=== PATIENT | female | born 1980 | race Two or more races ===

== ENCOUNTER 2021-06-08 16:57 | Inpatient (IN) | payer SELFPAY ==
[~2021-06-08] VITALS: Ht 160 cm; Wt 79.3 kg
[2021-06-08] MEDS ORDERED: IV NORMAL SALINE 1000ML BAG 1,000 ML IV ONE ×2 (18:15→18:30)
[2021-06-08] MEDS ORDERED: KETOROLAC 30 MG/ML VIAL. IVP ONE (18:15)
[2021-06-08 18:30] LABS: BASO % 1 % (0-3); EOS % 0 % (0-3); HEMATOCRIT 44.2 % (36.0-47.0); HEMOGLOBIN 14.9 g/dL (12.0-15.5); LYMPH % 11 % (24-48); MEAN CORPUSCULAR HEMOGLOBIN 29 pg (25-35); MEAN CORPUSCULAR HGB CONC 34 g/dL (31-37); MEAN CORPUSCULAR VOLUME 87 fL (79-100); MONO # 0.8 x10^3/uL (0.0-1.1); MONO % 8 % (0-9); NEUT # 7.8 x10^3/uL (1.8-7.7); NEUT % 80 % (31-73); PLATELET COUNT 338 x10^3/uL (140-400); RED BLOOD COUNT 5.06 x10^6/uL (3.50-5.40); WHITE BLOOD COUNT 9.7 x10^3/uL (4.0-11.0)
[2021-06-08] MEDS ORDERED: ONDANSETRON PF 4 MG/2 ML VIAL. IVP ONE (18:30)
[2021-06-08] MEDS ORDERED: ACETAMINOPHEN 325 MG TABLET. PO ONE (18:30)
[2021-06-08 18:57] LABS: ALBUMIN 2.6 g/dL (3.4-5.0); ALBUMIN/GLOBULIN RATIO 0.4 (1.0-1.7); CALCIUM 9.1 mg/dL (8.5-10.1); GFR 60.8; TOTAL BILIRUBIN 0.9 mg/dL (0.2-1.0); TOTAL PROTEIN 8.5 g/dL (6.4-8.2)
[2021-06-08 19:07] LABS: INFLUENZA A PATIENT NEGATIVE (NEGATIVE); INFLUENZA B PATIENT NEGATIVE (NEGATIVE)
--- NOTE | 2021-06-08 19:12 | EKG ---
[facility] [address] [place] [address] Test Date: 2021-06-08 Test Time: 17:59:50 Pat Name: TAE ANGEL Department: Room: Gender: F [employer] Supervisor: : 1980 Requested By: STAR TRIPP Order Number: [id number] Reading MD: Cholo Martino MD Measurements Intervals [place] Rate: 134 P: 91 ND: 126 QRS: -10 QRSD: 82 T: 43 QT: 290 QTc: 439 Interpretive Statements SINUS TACHYCARDIA NON-SPECIFIC ST/T CHANGES Electronically Signed On 06-15-2021 11:54:04 SURGEON/PRESIDENT by Cholo Martino MD
--- NOTE | 2021-06-08 19:30 | RAD ---
XR CHEST 1V Clinical Indication: Reason: Shortness of breath Comparison: None. Findings: The cardiomediastinal silhouette is normal. There are moderate bilateral patchy airspace opacities. T here is no pneumothorax. No pleural effusion is appreciated. No acute bone abnormality. IMPRESSION: Moderate bilateral patchy airspace opacities suggest pneumonia including atypical/viral pneumonia. Electronically signed by: Josemanuel Zelaya MD (06/08/2021 7:28 PM) [facility]
[2021-06-08] MEDS ORDERED: POTASSIUM CHLORIDE 10MEQ 100 ML IV PRN ×3 (19:45)
[2021-06-08] MEDS ORDERED: ACETAMINOPHEN 325 MG TABLET. PO PRN (20:15)
[2021-06-08] MEDS ORDERED: MORPHINE SULFATE 2 MG/ML INJ. IVP PRN (20:15)
[2021-06-08] MEDS ORDERED: ONDANSETRON PF 4 MG/2 ML VIAL. IVP PRN (20:15)
[2021-06-08] MEDS ORDERED: cefTRIAXone IV Push 1 GM VIAL. IVP ONE (20:30)
[2021-06-08] MEDS ORDERED: DEXAMETHASONE SOD PHOS 20 MG/5 ML VIAL. IV ONE (20:30)
[2021-06-08] MEDS ORDERED: AZITHRMYCN 500MG IVPB FOR OMNI 250 ML IV ONE (20:30)
[2021-06-08 20:40] LABS: BILIRUBIN,URINE SMALL (NEG); CLARITY,URINE CLEAR; COLOR,URINE YELLOW; NITRITE,URINE NEGATIVE (NEG); PH,URINE 6.5 (<5.0-8.0); PROTEIN,URINE 100 mg/dL (NEG-TRACE)
[2021-06-08 20:45] LABS: RBC,URINE TNTC /HPF (0-2)
--- NOTE | 2021-06-08 20:45 | PHYS DOC ---
Past Medical History Past Surgical History: No Surgical History (STAR TRIPP APRN) Smoking Status: Never Smoker Alcohol Use: None (STAR TRIPP APRN) General Adult EDM: Chief Complaint: SHORTNESS OF BREATH HPI: HPI: Patient is a 41-year-old female presents to the emergency department complaining of shortness of breath since this past . Patient denies chest pains, has not taken her temperature however does state she felt feverish with chills, denies chest pains, denies chest congestion, denies abdominal pains, states she does feel nauseated at times, denies nasal congestion, does complain of bilateral ear pain with throat discomfort. Reports body aches, denies receiving the COVID-19 virus vaccination series nor the flu vaccination this year. Patient states she is normally healthy and does not take prescription medications at home, does not have a primary care provider. Reports her last menstrual cycle 2 weeks ago with normal duration of flow. Patient denies urinary pressure, burning with urination, does report she is going to the bathroom more frequently and is drinking more water as she seems more thirsty lately. Patient denies other physical complaints or physical concerns. (STAR TRIPP APRN) Review of Systems: Review of Systems: 14 body systems of review of systems have been reviewed. See HPI for pertinent positives and negative responses, otherwise all other systems are negative, nonpertinent or noncontributory. Constitutional: Negative except as outlined in HPI above. Skin: Negative except as outlined in HPI above. Eyes: Negative except as outlined in HPI above. HENT: Negative except as outlined in HPI above. Respiratory: Negative except as outlined in HPI above. Cardiovascular: Negative except as outlined in HPI above. GI: Negative except as outlined in HPI above. : Negative except as outlined in HPI above. Musculoskeletal: Negative except as outlined in HPI above. Integument: Negative except as outlined in HPI above. Neurologic: Negative except as outlined in HPI above. Endocrine: Negative except as outlined in HPI above. Lymphatic: Negative except as outlined in HPI above. Psychiatric: Negative except as outlined in HPI above. (STAR TRIPP APRN) Heart Score: C/O Chest Pain: No Risk Factors: Risk Factors: DM, Current or recent (<one month) smoker, HTN, HLP, family history of CAD, obesity. Risk Scores: Score 0 - 3: 2.5% MACE over next 6 weeks - Discharge Home Score 4 - 6: 20.3% MACE over next 6 weeks - Admit for Clinical Observation Score 7 - 10: 72.7% MACE over next 6 weeks - Early Invasive Strategies (STAR TRIPP APRN) Current Medications: Current Medications Medications (Trade) Dose Ordered Sig/Andres Start Time Stop Time Status Last Admin Dose Admin Acetaminophen (Tylenol) 650 mg PRN Q4HRS PRN 06/08/21 20:15 06/09/21 20:14 UNV Azithromycin 250 ml @ 250 mls/hr 1X ONCE 06/08/21 20:30 06/08/21 21:29 Ceftriaxone Sodium (Rocephin) 1 gm 1X ONCE 06/08/21 20:30 06/08/21 20:31 Dexamethasone Sodium Phosphate (Decadron) 10 mg 1X ONCE 06/08/21 20:30 06/08/21 20:31 Insulin Human Regular 100 unit/ Sodium Chloride 101 ml @ 0 mls/hr CONT PRN PRN 06/08/21 19:45 Ketorolac Tromethamine (Toradol 30mg Vial) 30 mg 1X ONCE 06/08/21 18:15 06/08/21 18:23 DC 06/08/21 18:26 30 MG Morphine Sulfate (Morphine Sulfate) 2 mg PRN Q2HR PRN 06/08/21 20:15 06/09/21 20:14 UNV Ondansetron HCl (Zofran) 4 mg PRN Q8HRS PRN 06/08/21 20:15 06/09/21 20:14 UNV Potassium Chloride/Water 100 ml @ 100 mls/hr PRN Q1HR PRN 06/08/21 19:45 Sodium Chloride 1,000 ml @ 1,000 mls/hr 1X ONCE 06/08/21 18:30 06/08/21 19:29 DC 06/08/21 18:18 1,000 MLS/HR (STAR TRIPP APRN) Allergies: Allergies: Allergies Coded Allergies Type Severity Reaction Last Updated Verified No Known Drug Allergies 06/08/21 No (STAR TRIPP APRN) Physical Exam: PE: Constitutional: Well developed, well nourished, no acute distress, is not toxic in appearance, is hypoxic during triage vitals, placed on 2 L per nasal cannula O2. HENT: Normocephalic, atraumatic. Oropharynx dry, tongue is dry, mild erythema of the oropharynx, no uvular edema or deviation, no laryngeal edema appreciated, patient speaking in normal voice tones. Bilateral TMs intact and within normal limits for bilateral nasal turbinates dry, no drainage appreciated. No lymphadenopathy of the head or neck appreciated. Eyes: Conjunctiva not erythematous, dry bilaterally, no discharge. PERRLA Neck: Normal range of motion, no stridor. No nuchal rigidity, no meningismus signs. Cardiovascular: No cyanosis appreciated, distal cap refill less than 2 seconds. Heart rate tachycardic. Lungs & Thorax: Patient is in no respiratory distress, no audible adventitious lung sounds appreciated. Lung sounds clear to auscultate all lung fernandez, patient tachypneic and breathing. Abdomen: Nontender, no abnormalities noted. Skin: Warm, dry, no erythema, no rash. Back: No tenderness, no deformities. Extremities: No tenderness, no cyanosis, no clubbing, ROM intact, no edema. Neurologic: Alert and oriented X 3, normal motor function, normal sensory function, no focal deficits noted. Psychologic: Affect normal, judgement normal, mood normal. (STAR TRIPP APRN) Current Patient Data: Labs: Laboratory Tests Test 06/08/21 18:03 White Blood Count 9.7 x10^3/uL (4.0-11.0) Red Blood Count 5.06 x10^6/uL (3.50-5.40) Hemoglobin 14.9 g/dL (12.0-15.5) Hematocrit 44.2 % (36.0-47.0) Mean Corpuscular Volume 87 fL (79-100) Mean Corpuscular Hemoglobin 29 pg (25-35) Mean Corpuscular Hemoglobin Concent 34 g/dL (31-37) Red Cell Distribution Width 15.0 % (11.5-14.5) H Platelet Count 338 x10^3/uL (140-400) Neutrophils (%) (Auto) 80 % (31-73) H Lymphocytes (%) (Auto) 11 % (24-48) L Monocytes (%) (Auto) 8 % (0-9) Eosinophils (%) (Auto) 0 % (0-3) Basophils (%) (Auto) 1 % (0-3) Neutrophils # (Auto) 7.8 x10^3/uL (1.8-7.7) H Lymphocytes # (Auto) 1.0 x10^3/uL (1.0-4.8) Monocytes # (Auto) 0.8 x10^3/uL (0.0-1.1) Eosinophils # (Auto) 0.0 x10^3/uL (0.0-0.7) Basophils # (Auto) 0.0 x10^3/uL (0.0-0.2) Sodium Level 131 mmol/L (136-145) L Potassium Level 3.0 mmol/L (3.5-5.1) L Chloride Level 99 mmol/L (98-107) Carbon Dioxide Level 11 mmol/L (21-32) *L Anion Gap 21 (6-14) H Blood Urea Nitrogen 13 mg/dL (7-20) Creatinine 1.0 mg/dL (0.6-1.0) Estimated GFR (Cockcroft-Gault) 60.8 BUN/Creatinine Ratio 13 (6-20) Glucose Level 453 mg/dL (70-99) H Lactic Acid Level 3.0 mmol/L (0.4-2.0) H Calcium Level 9.1 mg/dL (8.5-10.1) Magnesium Level 2.3 mg/dL (1.8-2.4) Total Bilirubin 0.9 mg/dL (0.2-1.0) Aspartate Amino Transferase (AST) 39 U/L (15-37) H Alanine Aminotransferase (ALT) 85 U/L (14-59) H Alkaline Phosphatase 143 U/L (46-116) H Total Protein 8.5 g/dL (6.4-8.2) H Albumin 2.6 g/dL (3.4-5.0) L Albumin/Globulin Ratio 0.4 (1.0-1.7) L Acetone Level Sm pos (NEG) Influenza Type A Antigen Negative (NEGATIVE) Influenza Type B Antigen Negative (NEGATIVE) SARS-CoV-2 Antigen (Rapid) Negative (NEGATIVE) Laboratory Tests 06/08/21 18:03 Laboratory Tests 06/08/21 18:03 Vital Signs: Vital Signs Date Time Temp Pulse Resp B/P (MAP) Pulse Ox O2 Delivery O2 Flow Rate FiO2 06/08/21 19:00 122 40 134/82 (99) 97 Nasal Cannula 2.0 06/08/21 17:47 97.9 97.9 (STAR TRIPP APRN) EKG: EKG: EKG performed at 1759 by ED nursing staff shows a sinus tachycardia with leftward axis deviation otherwise no other ectopy appreciated, heart rate 134 bpm, VA interval 0.126, QTc interval 0.439, no acute STEMI, no ACS, no acute ischemia appreciated, EKG interpreted by ED attending physician Dr. Luna. (STAR TRIPP APRN) Radiology/Procedures: Radiology/Procedures: REASON: Shortness of breath PROCEDURE: CHEST AP ONLY XR CHEST 1V Clinical Indication: Reason: Shortness of breath Comparison: None. Findings: The cardiomediastinal silhouette is normal. There are moderate bilateral patchy airspace opacities. There is no pneumothorax. No pleural effusion is appreciated. No acute bone abnormality. IMPRESSION: Moderate bilateral patchy airspace opacities suggest pneumonia including atypical/viral pneumonia. Electronically signed by: Josemanuel Zelaya MD (06/08/2021 7:28 PM) [facility] (STAR TRIPP APRN) Course & Med Decision Making: Course & Med Decision Making Pertinent Labs and Imaging studies reviewed. (See chart for details) 41-year-old female, vital signs reviewed, presents emergency department concerning shortness of breath since this past . Patient physical examination concerning for viral pneumonia versus atypical pneumonia versus pneumonia versus dehydration versus other metabolic process. Will order CBC, CMP, blood cultures x2, EKG, lactic acid, chest x-ray, urinalysis assay, urine test. Strep test, rapid Covid testing, rapid flu testing. Patient's chest x-ray concerning for atypical pneumonia versus viral pneumonia, strep test, rapid Covid tested, rapid flu testing all negative, patient's blood sugar elevated 465, CO2 level 11, called to me by lab, patient's anion gap 21, will start hyperglycemia insulin protocol, give 10 mg Decadron IV, 1 g Rocephin IV, 2 500 mg Zithromax IV, will order acetone level, BNP, troponin, will order IV potassium for hypokalemia of 3.0, recommended to patient admission to hospital for atypical pneumonia, new onset diabetic ketoacidosis, patient is amenable to admission. Called and discussed patient case and ED work-up with inpatient management physician Dr. Butcher who agrees patient's case warrants admission to the ICU. Patient awaiting room assignment at this time. (STAR TRIPP APRN) Course & Med Decision Making Patients Care and treatment plan provided by ER Nurse Practitioner. I was available for consult. Patient's chart reviewed. (JONNA LUNA DO) Dragon Disclaimer: Dragon Disclaimer: This electronic medical record was generated, in whole or in part, using a voice recognition dictation system. (STAR TRIPP APRN) Departure Departure Impression: Primary Impression: Atypical pneumonia Additional Impressions: Person under investigation for COVID-19 DKA (diabetic ketoacidosis) Qualified Codes: E13.10 - Other specified diabetes mellitus with ketoacidosis without coma Hypokalemia Hyponatremia Sepsis Qualified Codes: A41.9 - Sepsis, unspecified organism Disposition: 09 ADMITTED INPATIENT Admitting Physician: HIMS (Admit to Dr. Butcher to ICU.) (STAR TRIPP APRN) Condition: GUARDED STAR TRIPP APRN Jun 08, 2021 20:44 JONNA LUNA DO Jun 10, 2021 03:33
[2021-06-08 20:46] LABS: BACTERIA,URINE FEW /HPF (0-FEW)
[2021-06-08 20:47] LABS: YEAST,URINE PRESENT /HPF
[2021-06-08 20:59] LABS: BASE EXCESS ABG -18 mmol/L (-3-3); HCO3 ABG 7 mmol/L (21-28); PO2 ABG 72 mmHg (75-108); SAT O2 ABG 93 % (92-99)
[2021-06-08] MEDS ORDERED: INSULIN,REGULAR 100 UNIT DRIP 100 ML IV ONE (21:00)
[2021-06-08 21:01] LABS: PCO2 ABG 17 mmHg (35-46)
[2021-06-08 21:02] LABS: FIO2 ABG 28
[2021-06-08] MEDS: INSULIN REGULAR VIAL 100 UNIT in IV NORMAL SALINE 100ML 100 ML IV PRN (21:28)
[2021-06-08] MEDS: POTASSIUM CHLORIDE 10MEQ 100 ML IV SCH ×2 (21:30→23:04)
[2021-06-08] MEDS ORDERED: IV 1/2 NORMAL SALINE 1,000 ML IV ONE (22:45)
[2021-06-08 23:12] LABS: CREATININE 0.7 mg/dL (0.6-1.0); GFR 91.8; POTASSIUM 3.2 mmol/L (3.5-5.1)
[2021-06-08 23:15] LABS: MAGNESIUM 2.2 mg/dL (1.8-2.4); PHOSPHORUS 1.1 mg/dL (2.6-4.7)
[2021-06-09] VITALS (23 sets, daily range): BP systolic 94–134; BP diastolic 54–83
[2021-06-09] MEDS: POTASSIUM CHLORIDE 10MEQ 100 ML IV SCH ×8 (00:30→13:37)
[2021-06-09] MEDS ORDERED: IV DEXTROSE 5 %-0.45 % NACL 1,000 ML IV ONE (02:45)
[2021-06-09 04:12] LABS: CALCIUM 8.5 mg/dL (8.5-10.1); CREATININE 0.6 mg/dL (0.6-1.0); GFR 109.6; MAGNESIUM 2.3 mg/dL (1.8-2.4); PHOSPHORUS 0.6 mg/dL (2.6-4.7)
[2021-06-09] MEDS ORDERED: IV DEXTROSE 5% - 0.9 % NACL 1,000 ML IV SCH ×2 (04:15→13:15)
[2021-06-09 04:21] LABS: POTASSIUM 2.7 mmol/L (3.5-5.1)
--- NOTE | 2021-06-09 07:12 | PDOC1 ---
History and Physical Date of Admission Date of Admission DATE: 06/09/21 TIME: 07:10 Identification/Chief Complaint Chief Complaint Vomiting Source Source: Chart review, Patient History of Present Illness History of Present Illness Ms Engel is a 41 yo female who is Slovak-speaking only with no significant past medical history who comes to the ED complain of posterior headache nausea and vomiting for 1 week. She notes her tongue has been very dry and she has been urinating frequently and been very thirsty. She also has been told that she is breathing very quickly though she does not feel she is breathing quickly and she is not able to slow down her breathing. WBC 9.7, Hb 14.9, platelets 338, NA 131, K3, HCO3 11, anion gap 21, BUN 13, CR 1, glucose 453, lactic acid 3, calcium 9.1, 0.9, ast 39,ALT 85, alkaline phosphatase 143, albumin 2.6, NT proBNP 35, high-sensitivity troponin is 4, urine with blood glucose, rapid influenza negative, rapid COVID-19 negative, rapid strep negative. Chest radiograph with moderate bilateral patchy airspace disease EKG sinus tachycardia rate of 134 bpm leftward axis, normal intervals no TWI or ST segment elevation Admitted to ICU on insulin GTT Past Medical History Cardiovascular: No pertinent hx Past Surgical History Past Surgical History: No pertinent history Family History Family History: Diabetes, High Cholestrol Social History Smoke: No ALCOHOL: none Drugs: None Current Problem List Problem List Problems Medical Problems: (1) Atypical pneumonia Status: Acute (2) DKA (diabetic ketoacidosis) Status: Acute (3) Hypokalemia Status: Acute (4) Hyponatremia Status: Acute (5) Person under investigation for COVID-19 Status: Acute (6) Sepsis Status: Acute Current Medications Current Medications Current Medications Sodium Chloride 1,000 ml @ 1,000 mls/hr 1X ONCE IV Last administered on 06/08at 18:15; Start 06/08/21 at 18:15; Stop 06/08/21 at 19:14; Status DC Ketorolac Tromethamine (Toradol 30mg Vial) 30 mg 1X ONCE IVP Last administered on 06/08/21at 18:26; Start 06/08/21 at 18:15; Stop 06/08/21 at 18:23; Status DC Acetaminophen (Tylenol) 1,000 mg 1X ONCE PO Last administered on 06/08/21at 18:26; Start 06/08/21 at 18:30; Stop 06/08/21 at 18:31; Status DC Ondansetron HCl (Zofran) 4 mg 1X ONCE IVP Last administered on 06/08/21at 18:26; Start 06/08/21 at 18:30; Stop 06/08/21 at 18:31; Status DC Sodium Chloride 1,000 ml @ 1,000 mls/hr 1X ONCE IV Last administered on 06/08/21at 18:18; Start 06/08/21 at 18:30; Stop 06/08/21 at 19:29; Status DC Insulin Human Regular 100 unit/ Sodium Chloride 101 ml @ 0 mls/hr CONT PRN PRN IV PER PROTOCOL Last administered on 06/08/21at 21:28; Start 06/08/21 at 19:45 Potassium Chloride/Water 100 ml @ 100 mls/hr PRN Q1HR PRN IV SEE COMMENTS; Start 06/08/21 at 19:45 Potassium Chloride/Water 100 ml @ 100 mls/hr PRN Q1HR PRN IV SEE COMMENTS; Start 06/08/21 at 19:45 Potassium Chloride/Water 100 ml @ 100 mls/hr PRN Q1HR PRN IV SEE COMMENTS; Start 06/08/21 at 19:45 Azithromycin 250 ml @ 250 mls/hr 1X ONCE IV Last administered on 06/08/21at 20:45; Start 06/08/21 at 20:30; Stop 06/08/21 at 21:29; Status DC Ceftriaxone Sodium (Rocephin) 1 gm 1X ONCE IVP Last administered on 06/08/21at 20:43; Start 06/08/21 at 20:30; Stop 06/08/21 at 20:31; Status DC Dexamethasone Sodium Phosphate (Decadron) 10 mg 1X ONCE IV Last administered on 06/08/21at 20:43; Start 06/08/21 at 20:30; Stop 06/08/21 at 20:31; Status DC Ondansetron HCl (Zofran) 4 mg PRN Q8HRS PRN IVP NAUSEA/VOMITING; Start 06/08/21 at 20:15; Stop 06/09/21 at 20:14 Morphine Sulfate (Morphine Sulfate) 2 mg PRN Q2HR PRN IVP PAIN; Start 06/08/21 at 20:15; Stop 06/09/21 at 20:14 Acetaminophen (Tylenol) 650 mg PRN Q4HRS PRN PO FEVER > 100.3'F; Start 05/12 03/31 at 20:15; Stop 06/09/21 at 20:14 Insulin Human Regular 100 ml @ 7 mls/hr 1X ONCE IV ; Start 06/08/21 at 21:00; Stop 06/08/21 at 21:01; Status DC Potassium Chloride/Water 100 ml @ 100 mls/hr Q1HR IV Last administered on 06/09/21at 01:42; Start 06/08/21 at 21:00; Stop 06/09/21 at 00:59; Status DC Sodium Chloride 1,000 ml @ 250 mls/hr 1X ONCE IV Last administered on 06/08/21at 23:04; Start 06/08/21 at 22:45; Stop 06/09/21 at 02:44; Status DC Dextrose/Sodium Chloride 1,000 ml @ 250 mls/hr 1X ONCE IV Last administered on 06/09/21at 02:45; Start 06/09/21 at 02:45; Stop 06/09/21 at 06:44; Status DC Dextrose/Sodium Chloride 1,000 ml @ 250 mls/hr Q4H IV Last administered on 06/09/21at 04:10; Start 06/09/21 at 04:15 Potassium Chloride/Water 100 ml @ 100 mls/hr Q1HR IV ; Start 06/09/21 at 07:00; Stop 06/09/21 at 12:59 Potassium Phosphate 15 mmol/ Sodium Chloride 105 ml @ 52.5 mls/hr Q2H IV ; Start 06/09/21 at 07:15; Stop 06/09/21 at 11:14; Status UNV Allergies Allergies: Coded Allergies: No Known Drug Allergies (Unverified , 06/08/21) ROS General: YES: Fatigue, Malaise, Appetite; No: Chills, Night Sweats, Other PSYCHOLOGICAL ROS: No: Anxiety, Behavioral Disorder, Concentration difficultie, Decreased libido, Depression, Disorientation, Hallucinations, Hostility, Irritablity, Memory difficulties, Mood Swings, Obsessive thoughts, Physical abuse, Sexual abuse, Sleep disturbances, Suicidal ideation, Other Eyes: No Blurry vision, No Decreased vision, No Double vision, No Dry eyes, No Excessive tearing, No Eye Pain, No Itchy Eyes, No Loss of vision, No Photophob ia, No Scotomata, No Uses contacts, No Uses glasses, No Other HEENT: No: Heacaches, Visual Changes, Hearing change, Nasal congestion, Nasal discharge, Oral lesions, Sinus pain, Sore Throat, Epistaxis, Sneezing, Snoring, Tinnitus, Vertigo, Vocal changes, Other ALLERGY AND IMMUNOLOGY: No: Hives, Insect Bite Sensitivity, Itchy/Watery Eyes, Nasal Congestion, Post Nasal Drip, Seasonal Allergies, Other Hematological and Lymphatic: No: Bleeding Problems, Blood Clots, Blood Transfusions, Brusing, Night Sweats, Pallor, Swollen Lymph Nodes, Other ENDOCRINE: No: Breast Changes, Galactorrhea, Hair Pattern Changes, Hot Flashes, Malaise/lethargy, Mood Swings, Palpitations, Polydipsia/polyuria, Skin Changes, Temperature Intolerance, Unexpected Weight Changes, Other Breast: No New/Changing Breast Lumps, No Nipple changes, No Nipple discharge, No Other Respiratory: YES: Cough, Shortness of breath; No: Hemoptysis, Orthopnea, Pleuritic Pain, SOB with excertion, Sputum Changes, Stridor, Tachypnea, Wheezing, Other Cardiovascular: No Chest Pain, No Palpitations, No Orthopnea, No Paroxysmal Noc. Dyspnea, No Edema, No Lt Headedness, No Other Gastrointestinal: Yes Nausea, Yes Vomiting, Yes Abdominal Pain; No Diarrhea, No Constipation, No Melena, No Hematochezia, No Other Genitourinary: No Dysuria, No Frequency, No Incontinence, No Hematuria, No Retention, No Discharge, No Urgency, No Pain, No Flank Pain, No Other, No , No , No , No , No , No , No Musculoskeletal: No Gait Disturbance, No Joint Pain, No Joint Stiffness, No Joint Swelling, No Muscle Pain, No Muscular Weakness, No Pain In:, No Swelling In:, No Other Neurological: No Behavorial Changes, No Bowel/Bladder ControlChng, No Confusion, No Dizziness, No Gait Disturbance, No Headaches, No Impaired Coord/balance, No Memory Loss, No Numbness/Tingling, No Seizures, No Speech Problems, No Tremors, No Visual Changes, No Weakness, No Other Skin: No Dry Skin, No Eczema, No Hair Changes, No Lumps, No Mole Changes, No Mottling, No Nail Changes, No Pruritus, No Rash, No Skin Lesion Changes, No Other, No Acne Physical Exam General: Alert, Oriented X3, Cooperative, mild distress HEENT: Atraumatic, PERRLA, EOMI, Mucous membr. moist/pink Lungs: Clear to auscultation, Normal air movement Heart: S1S2, RRR, no thrills, no rubs, no gallops, no murmurs Abdomen: Normal bowel sounds, Soft, No tenderness, No hepatosplenomegaly, No masses Rectal Exam: not examined Extremities: No clubbing, No cyanosis, No edema, Normal pulses, No tenderness/swelling Skin: No rashes, No breakdown, No significant lesion Neuro: Normal gait, Normal speech, Strength at 5/5 X4 ext, Normal tone, Sensation intact, Cranial nerves 3-12 NL, Reflexes 2+ Psych/Mental Status: Mental status NL, Mood NL Vitals Vitals Vital Signs Date Time Temp Pulse Resp B/P (MAP) Pulse Ox O2 Delivery O2 Flow Rate FiO2 06/09/21 06:00 70 22 122/69 (86) 94 Nasal Cannula 2.0 06/09/21 04:00 98.3 98.3 Labs Labs Laboratory Tests Test 06/08/21 18:03 06/08/21 18:36 06/08/21 19:53 06/08/21 20:33 White Blood Count 9.7 x10^3/uL (4.0-11.0) Red Blood Count 5.06 x10^6/uL (3.50-5.40) Hemoglobin 14.9 g/dL (12.0-15.5) Hematocrit 44.2 % (36.0-47.0) Mean Corpuscular Volume 87 fL (79-100) Mean Corpuscular Hemoglobin 29 pg (25-35) Mean Corpuscular Hemoglobin Concent 34 g/dL (31-37) Red Cell Distribution Width 15.0 % (11.5-14.5) Platelet Count 338 x10^3/uL (140-400) Neutrophils (%) (Auto) 80 % (31-73) Lymphocytes (%) (Auto) 11 % (24-48) Monocytes (%) (Auto) 8 % (0-9) Eosinophils (%) (Auto) 0 % (0-3) Basophils (%) (Auto) 1 % (0-3) Neutrophils # (Auto) 7.8 x10^3/uL (1.8-7.7) Lymphocytes # (Auto) 1.0 x10^3/uL (1.0-4.8) Monocytes # (Auto) 0.8 x10^3/uL (0.0-1.1) Eosinophils # (Auto) 0.0 x10^3/uL (0.0-0.7) Basophils # (Auto) 0.0 x10^3/uL (0.0-0.2) Sodium Level 131 mmol/L (136-145) Potassium Level 3.0 mmol/L (3.5-5.1) Chloride Level 99 mmol/L (98-107) Carbon Dioxide Level 11 mmol/L (21-32) Anion Gap 21 (6-14) Blood Urea Nitrogen 13 mg/dL (7-20) Creatinine 1.0 mg/dL (0.6-1.0) Estimated GFR (Cockcroft-Gault) 60.8 BUN/Creatinine Ratio 13 (6-20) Glucose Level 453 mg/dL (70-99) Lactic Acid Level 3.0 mmol/L (0.4-2.0) Calcium Level 9.1 mg/dL (8.5-10.1) Magnesium Level 2.3 mg/dL (1.8-2.4) Total Bilirubin 0.9 mg/dL (0.2-1.0) Aspartate Amino Transf (AST/SGOT) 39 U/L (15-37) Alanine Aminotransferase (ALT/SGPT) 85 U/L (14-59) Alkaline Phosphatase 143 U/L (46-116) Troponin I High Sensitivity < 4 ng/L (4-50) LV-Snn-C-Type Natriuretic Peptide 35 pg/mL (0-124) Total Protein 8.5 g/dL (6.4-8.2) Albumin 2.6 g/dL (3.4-5.0) Albumin/Globulin Ratio 0.4 (1.0-1.7) Acetone Level Sm pos (NEG) Influenza Type A Antigen Negative (NEGATIVE) Influenza Type B Antigen Negative (NEGATIVE) SARS-CoV-2 Antigen (Rapid) Negative (NEGATIVE) Group A Streptococcus Rapid Negative (NEGATIVE) O2 Saturation 93 % (92-99) Arterial Blood pH 7.24 (7.35-7.45) Arterial Blood pCO2 at Patient Temp 17 mmHg (35-46) Arterial Blood pO2 at Patient Temp 72 mmHg (75-108) Arterial Blood HCO3 7 mmol/L (21-28) Arterial Blood Base Excess -18 mmol/L (-3-3) FiO2 28 Urine Collection Type Unknown Urine Color Yellow Urine Clarity Clear Urine pH 6.5 (<5.0-8.0) Urine Specific Alpine >=1.030 (1.000-1.030) Urine Protein 100 mg/dL (NEG-TRACE) Urine Glucose (UA) >=1000 mg/dL (NEG) Urine Ketones (Stick) >=80 mg/dL (NEG) Urine Blood Large (NEG) Urine Nitrite Negative (NEG) Urine Bilirubin Small (NEG) Urine Urobilinogen Dipstick 1.0 mg/dL (0.2 mg/dL) Urine Leukocyte Esterase Negative (NEG) Urine RBC Tntc /HPF (0-2) Urine WBC 1-4 /HPF (0-4) Urine Squamous Epithelial Cells Mod /LPF Urine Bacteria Few /HPF (0-FEW) Urine Mucus Marked /LPF Urine Yeast Present /HPF Test 06/08/21 21:08 06/08/21 22:24 06/08/21 22:56 06/08/21 23:36 Glucose (Fingerstick) 333 mg/dL (70-99) 301 mg/dL (70-99) 250 mg/dL (70-99) Sodium Level 136 mmol/L (136-145) Potassium Level 3.2 mmol/L (3.5-5.1) Chloride Level 110 mmol/L (98-107) Carbon Dioxide Level 10 mmol/L (21-32) Anion Gap 16 (6-14) Blood Urea Nitrogen 13 mg/dL (7-20) Creatinine 0.7 mg/dL (0.6-1.0) Estimated GFR (Cockcroft-Gault) 91.8 Glucose Level 313 mg/dL (70-99) Lactic Acid Level 0.8 mmol/L (0.4-2.0) Calcium Level 8.0 mg/dL (8.5-10.1) Phosphorus Level 1.1 mg/dL (2.6-4.7) Magnesium Level 2.2 mg/dL (1.8-2.4) Test 06/09/21 00:36 06/09/21 01:45 06/09/21 02:47 06/09/21 03:20 Glucose (Fingerstick) 287 mg/dL (70-99) 198 mg/dL (70-99) 163 mg/dL (70-99) Sodium Level 140 mmol/L (136-145) Potassium Level 2.7 mmol/L (3.5-5.1) Chloride Level 111 mmol/L (98-107) Carbon Dioxide Level 15 mmol/L (21-32) Anion Gap 14 (6-14) Blood Urea Nitrogen 12 mg/dL (7-20) Creatinine 0.6 mg/dL (0.6-1.0) Estimated GFR (Cockcroft-Gault) 109.6 Glucose Level 160 mg/dL (70-99) Calcium Level 8.5 mg/dL (8.5-10.1) Phosphorus Level 0.6 mg/dL (2.6-4.7) Magnesium Level 2.3 mg/dL (1.8-2.4) Test 06/09/21 04:00 06/09/21 04:47 06/09/21 06:04 06/09/21 06:49 Glucose (Fingerstick) 148 mg/dL (70-99) 189 mg/dL (70-99) 266 mg/dL (70-99) 256 mg/dL (70-99) Laboratory Tests Test 06/08/21 18:03 06/08/21 18:36 06/08/21 19:53 06/08/21 20:33 White Blood Count 9.7 x10^3/uL (4.0-11.0) Red Blood Count 5.06 x10^6/uL (3.50-5.40) Hemoglobin 14.9 g/dL (12.0-15.5) Hematocrit 44.2 % (36.0-47.0) Mean Corpuscular Volume 87 fL (79-100) Mean Corpuscular Hemoglobin 29 pg (25-35) Mean Corpuscular Hemoglobin Concent 34 g/dL (31-37) Red Cell Distribution Width 15.0 % (11.5-14.5) Platelet Count 338 x10^3/uL (140-400) Neutrophils (%) (Auto) 80 % (31-73) Lymphocytes (%) (Auto) 11 % (24-48) Monocytes (%) (Auto) 8 % (0-9) Eosinophils (%) (Auto) 0 % (0-3) Basophils (%) (Auto) 1 % (0-3) Neutrophils # (Auto) 7.8 x10^3/uL (1.8-7.7) Lymphocytes # (Auto) 1.0 x10^3/uL (1.0-4.8) Monocytes # (Auto) 0.8 x10^3/uL (0.0-1.1) Eosinophils # (Auto) 0.0 x10^3/uL (0.0-0.7) Basophils # (Auto) 0.0 x10^3/uL (0.0-0.2) Sodium Level 131 mmol/L (136-145) Potassium Level 3.0 mmol/L (3.5-5.1) Chloride Level 99 mmol/L (98-107) Carbon Dioxide Level 11 mmol/L (21-32) Anion Gap 21 (6-14) Blood Urea Nitrogen 13 mg/dL (7-20) Creatinine 1.0 mg/dL (0.6-1.0) Estimated GFR (Cockcroft-Gault) 60.8 BUN/Creatinine Ratio 13 (6-20) Glucose Level 453 mg/dL (70-99) Lactic Acid Level 3.0 mmol/L (0.4-2.0) Calcium Level 9.1 mg/dL (8.5-10.1) Magnesium Level 2.3 mg/dL (1.8-2.4) Total Bilirubin 0.9 mg/dL (0.2-1.0) Aspartate Amino Transf (AST/SGOT) 39 U/L (15-37) Alanine Aminotransferase (ALT/SGPT) 85 U/L (14-59) Alkaline Phosphatase 143 U/L (46-116) Troponin I High Sensitivity < 4 ng/L (4-50) YZ-Wuc-T-Type Natriuretic Peptide 35 pg/mL (0-124) Total Protein 8.5 g/dL (6.4-8.2) Albumin 2.6 g/dL (3.4-5.0) Albumin/Globulin Ratio 0.4 (1.0-1.7) Acetone Level Sm pos (NEG) Influenza Type A Antigen Negative (NEGATIVE) Influenza Type B Antigen Negative (NEGATIVE) SARS-CoV-2 Antigen (Rapid) Negative (NEGATIVE) Group A Streptococcus Rapid Negative (NEGATIVE) O2 Saturation 93 % (92-99) Arterial Blood pH 7.24 (7.35-7.45) Arterial Blood pCO2 at Patient Temp 17 mmHg (35-46) Arterial Blood pO2 at Patient Temp 72 mmHg (75-108) Arterial Blood HCO3 7 mmol/L (21-28) Arterial Blood Base Excess -18 mmol/L (-3-3) FiO2 28 Urine Collection Type Unknown Urine Color Yellow Urine Clarity Clear Urine pH 6.5 (<5.0-8.0) Urine Specific Alpine >=1.030 (1.000-1.030) Urine Protein 100 mg/dL (NEG-TRACE) Urine Glucose (UA) >=1000 mg/dL (NEG) Urine Ketones (Stick) >=80 mg/dL (NEG) Urine Blood Large (NEG) Urine Nitrite Negative (NEG) Urine Bilirubin Small (NEG) Urine Urobilinogen Dipstick 1.0 mg/dL (0.2 mg/dL) Urine Leukocyte Esterase Negative (NEG) Urine RBC Tntc /HPF (0-2) Urine WBC 1-4 /HPF (0-4) Urine Squamous Epithelial Cells Mod /LPF Urine Bacteria Few /HPF (0-FEW) Urine Mucus Marked /LPF Urine Yeast Present /HPF Test 06/08/21 21:08 06/08/21 22:24 06/08/21 22:56 06/08/21 23:36 Glucose (Fingerstick) 333 mg/dL (70-99) 301 mg/dL (70-99) 250 mg/dL (70-99) Sodium Level 136 mmol/L (136-145) Potassium Level 3.2 mmol/L (3.5-5.1) Chloride Level 110 mmol/L (98-107) Carbon Dioxide Level 10 mmol/L (21-32) Anion Gap 16 (6-14) Blood Urea Nitrogen 13 mg/dL (7-20) Creatinine 0.7 mg/dL (0.6-1.0) Estimated GFR (Cockcroft-Gault) 91.8 Glucose Level 313 mg/dL (70-99) Lactic Acid Level 0.8 mmol/L (0.4-2.0) Calcium Level 8.0 mg/dL (8.5-10.1) Phosphorus Level 1.1 mg/dL (2.6-4.7) Magnesium Level 2.2 mg/dL (1.8-2.4) Test 06/09/21 00:36 06/09/21 01:45 06/09/21 02:47 06/09/21 03:20 Glucose (Fingerstick) 287 mg/dL (70-99) 198 mg/dL (70-99) 163 mg/dL (70-99) Sodium Level 140 mmol/L (136-145) Potassium Level 2.7 mmol/L (3.5-5.1) Chloride Level 111 mmol/L (98-107) Carbon Dioxide Level 15 mmol/L (21-32) Anion Gap 14 (6-14) Blood Urea Nitrogen 12 mg/dL (7-20) Creatinine 0.6 mg/dL (0.6-1.0) Estimated GFR (Cockcroft-Gault) 109.6 Glucose Level 160 mg/dL (70-99) Calcium Level 8.5 mg/dL (8.5-10.1) Phosphorus Level 0.6 mg/dL (2.6-4.7) Magnesium Level 2.3 mg/dL (1.8-2.4) Test 06/09/21 04:00 06/09/21 04:47 06/09/21 06:04 06/09/21 06:49 Glucose (Fingerstick) 148 mg/dL (70-99) 189 mg/dL (70-99) 266 mg/dL (70-99) 256 mg/dL (70-99) Images Images XR CHEST 1V: Findings: The cardiomediastinal silhouette is normal. There are moderate bilateral patchy airspace opacities. There is no pneumothorax. No pleural effusion is appreciated. No acute bone abnormality. IMPRESSION: Moderate bilateral patchy airspace opacities suggest pneumonia including atypical/viral pneumonia. VTE Prophylaxis Ordered VTE Prophylaxis Devices: Contraindicated VTE Pharmacological Prophylaxi: Yes Assessment/Plan Assessment/Plan A/P: Pneumonia - with abnormal CXR, cough. Will cover with doxycycline. Given rocephin and azithromycin in ED DKA (diabetic ketoacidosis) - insulin GTT. DKA protocol q4hr BMP, phos, mag, monitor for gap, if gap closes, and she has appetite will initiate SC glargine insulin Hypokalemia - IV replacement Hyponatremia - likely pseudohyponatremia from hyperglycemia, will monitor Sepsis - due to above, will monitor fluids, given empiric IV antibiotics Headache - prn tylenol, toradol. No neurologic deficits FEN - NPO PPX - SCDs FULL CODE Dispo - ICU CC time 32 Justifications for Admission Other Justification AURELIO MIDDLETON MD Jun 09, 2021 07:12
[2021-06-09] MEDS ORDERED: NORMAL SALINE IV ONE (07:45)
[2021-06-09] MEDS ORDERED: SODIUM PHOSPHATE IV ONE (07:45)
[2021-06-09] MEDS: INSULIN REGULAR VIAL 100 UNIT in IV NORMAL SALINE 100ML 100 ML IV PRN (07:52)
[2021-06-09] MEDS ORDERED: DEXTROSE 50% 25 GM / 50ML DISP.SYRIN. IV PRN (08:15)
[2021-06-09] MEDS ORDERED: INSULIN GLARGINE SYRINGE. SQ ONE (08:15)
[2021-06-09 08:35] LABS: CALCIUM 8.4 mg/dL (8.5-10.1); CREATININE 0.4 mg/dL (0.6-1.0); MAGNESIUM 2.1 mg/dL (1.8-2.4); PHOSPHORUS 0.6 mg/dL (2.6-4.7)
[2021-06-09] MEDS: POTASSIUM PHOS,M-BASIC-D-BASIC 15 MMOL in IV NORMAL SALINE 100ML 100 ML IV SCH ×2 (08:41→10:45)
[2021-06-09 08:43] LABS: POTASSIUM 2.3 mmol/L (3.5-5.1)
[2021-06-09] MEDS ORDERED: KETOROLAC 30 MG/ML VIAL. IVP PRN (08:45)
[2021-06-09] MEDS: DOXYCYCLINE HYCLATE 100 MG TABLET PO SCH ×2 (08:48→20:28)
[2021-06-09] MEDS: BENZONATATE 100 MG CAPSULE. PO SCH ×3 (08:48→20:28)
[2021-06-09] MEDS: LACTOBACILLUS RHAMNOSUS GG 1 CAPSULE. PO SCH ×2 (08:48→20:28)
[2021-06-09] MEDS ORDERED: IV DEXTROSE 5 %-0.45 % NACL 1,000 ML IV SCH ×2 (09:00→13:15)
--- NOTE | 2021-06-09 10:38 | NUR ---
SS following for discharge planning. SS reviewed pt chart and discussed with pt RN. Pt is from home and is currently requiring oxygen at two liters nasal canula. COVID19 positive. Pt on PO Doxycycline. Self pay. Med Assist following. SS will continue to follow for discharge planning.
[2021-06-09] MEDS: LIDO:MAALOX:BENADRYL 1:1:1 180 ML BOTTLE. PO PRN (10:45)
[2021-06-09] MEDS: INSULIN LISPRO 300 UNITS/3 ML VIAL. SQ SCH ×3 (12:28→17:56)
[2021-06-09 12:58] LABS: CALCIUM 7.9 mg/dL (8.5-10.1); CREATININE 0.5 mg/dL (0.6-1.0); GFR 135.3; MAGNESIUM 2.1 mg/dL (1.8-2.4); PHOSPHORUS 1.9 mg/dL (2.6-4.7); POTASSIUM 3.1 mmol/L (3.5-5.1)
[2021-06-09] MEDS ORDERED: PHENOL ORAL SPRAY 177ML BOTTLE. PO PRN (13:00)
[2021-06-09] MEDS: DEXAMETHASONE SOD PHOS 4 MG/ML VIAL IVP SCH (13:14)
[2021-06-09] MEDS: BENZOCAINE/MENTHOL LOZENGE. PO PRN (13:15)
[2021-06-09] MEDS: guaiFENesin DM 200MG/20MG 10 ML SYRUP PO PRN (13:15)
[2021-06-09] MEDS: IV NORMAL SALINE 1000ML BAG 1,000 ML IV SCH (15:23)
[2021-06-09] MEDS ORDERED: REMDESIVIR LOAD in IV NORMAL SALINE 250ML TV IV ONE (16:00)
[2021-06-09] MEDS ORDERED: INSULIN GLARGINE SYRINGE. SQ SCH ×2 (21:00)
[2021-06-10] VITALS (24 sets, daily range): BP systolic 107–132; BP diastolic 60–90
[2021-06-10 04:15] LABS: HEMOGLOBIN A1C 12.2 % (4.8-5.6)
[2021-06-10 04:36] LABS: CALCIUM 7.9 mg/dL (8.5-10.1); CREATININE 0.4 mg/dL (0.6-1.0); MAGNESIUM 1.9 mg/dL (1.8-2.4); PHOSPHORUS 1.6 mg/dL (2.6-4.7)
[2021-06-10 04:44] LABS: POTASSIUM 2.6 mmol/L (3.5-5.1)
[2021-06-10] MEDS ORDERED: POTASSIUM CHLORIDE 20 MEQ TABLET.ER. PO ONE ×4 (06:00→13:00)
[2021-06-10] MEDS: IV NORMAL SALINE 1000ML BAG 1,000 ML IV SCH (06:12)
[2021-06-10] MEDS: LACTOBACILLUS RHAMNOSUS GG 1 CAPSULE. PO SCH ×2 (08:11→20:32)
[2021-06-10] MEDS: DOXYCYCLINE HYCLATE 100 MG TABLET PO SCH ×2 (08:12→20:32)
[2021-06-10] MEDS: DEXAMETHASONE SOD PHOS 4 MG/ML VIAL IVP SCH (08:12)
[2021-06-10] MEDS: INSULIN LISPRO 300 UNITS/3 ML VIAL. SQ SCH ×6 (09:06→18:12)
--- NOTE | 2021-06-10 10:54 | PDOC ---
[employer] PROGRESS NOTE Date of Service DOS: DATE: 06/10/21 TIME: 10:52 Chief Complaint Chief Complaint COVID 19 pneumoina sepsis and Pneumonia - with abnormal CXR, cough. Will cover with doxycycline. Given rocephin and azithromycin in ED DKA (diabetic ketoacidosis) - insulin GTT. DKA protocol q4hr BMP, phos, mag, monitor for gap, if gap closes, and she has appetite will initiate SC glargine insulin Hypokalemia - IV replacement Hyponatremia - likely pseudohyponatremia from hyperglycemia, will monitor Sepsis - due to above, will monitor fluids, given empiric IV antibiotics Headache - History of Present Illness History of Present Illness start IV mprhine Potassium still terrible low, give IV mag, repeat PO K+, discussed with RN, ICU replacement electrolytes ordered 80 PO this AM, will repeat PO K+ Vitals/I&O Vitals/I&O: Vital Signs Date Time Temp Pulse Resp B/P (MAP) Pulse Ox O2 Delivery O2 Flow Rate FiO2 06/10/21 10:00 84 42 127/78 (94) 94 Nasal Cannula 6.0 06/10/21 08:00 97.8 97.8 I & O 06/09/21 06/09/21 06/10/21 15:00 23:00 07:00 Intake Total 400 ml 3907 ml 963 ml Output Total 0 ml 275 ml Balance 400 ml 3907 ml 688 ml Physical Exam General: Alert, Oriented X3, Cooperative, mild distress Heart: Regular rate Abdomen: Normal bowel sounds, Soft, No tenderness, No hepatosplenomegaly, No masses Extremities: No clubbing, No cyanosis, No edema, Normal pulses, No tenderness/swelling Skin: No rashes, No breakdown, No significant lesion Labs Labs: Laboratory Tests Test 06/09/21 12:23 06/09/21 12:35 06/09/21 17:08 06/09/21 20:18 Glucose (Fingerstick) 272 mg/dL (70-99) 377 mg/dL (70-99) 299 mg/dL (70-99) Sodium Level 134 mmol/L (136-145) Potassium Level 3.1 mmol/L (3.5-5.1) Chloride Level 108 mmol/L (98-107) Carbon Dioxide Level 15 mmol/L (21-32) Anion Gap 11 (6-14) Blood Urea Nitrogen 9 mg/dL (7-20) Creatinine 0.5 mg/dL (0.6-1.0) Estimated GFR (Cockcroft-Gault) 135.3 Glucose Level 280 mg/dL (70-99) Calcium Level 7.9 mg/dL (8.5-10.1) Phosphorus Level 1.9 mg/dL (2.6-4.7) Magnesium Level 2.1 mg/dL (1.8-2.4) Test 06/10/21 03:55 06/10/21 08:53 06/10/21 10:20 Sodium Level 138 mmol/L (136-145) Potassium Level 2.6 mmol/L (3.5-5.1) 2.8 mmol/L (3.5-5.1) Chloride Level 108 mmol/L (98-107) Carbon Dioxide Level 16 mmol/L (21-32) Anion Gap 14 (6-14) Blood Urea Nitrogen 11 mg/dL (7-20) Creatinine 0.4 mg/dL (0.6-1.0) Estimated GFR (Cockcroft-Gault) 175.0 Glucose Level 276 mg/dL (70-99) Calcium Level 7.9 mg/dL (8.5-10.1) Phosphorus Level 1.6 mg/dL (2.6-4.7) Magnesium Level 1.9 mg/dL (1.8-2.4) Glucose (Fingerstick) 284 mg/dL (70-99) Review of Systems Review of Systems: sinus congestion, poor po intake, weakness, left ear pain Assessment and Plan Assessmemt and Plan Problems Medical Problems: (1) Atypical pneumonia Status: Acute (2) DKA (diabetic ketoacidosis) Status: Acute (3) Hypokalemia Status: Acute (4) Hyponatremia Status: Acute (5) Person under investigation for COVID-19 Status: Acute (6) Sepsis Status: Acute Comment Review of Relevant I have reviewed the following items leydi (where applicable) has been applied. Medications: Current Medications Medications (Trade) Dose Ordered Sig/Andres Route PRN Reason Start Time Stop Time Status Last Admin Dose Admin Insulin Human Lispro (HumaLOG) 0-9 UNITS TIDWMEALS SQ 06/09/21 12:00 06/10/21 09:06 Throat Lozenges (Cepacol Sore Throat Lozenge) 1 bianka PRN Q2HRS PRN PO SORE THROAT 06/09/21 13:00 06/09/21 13:15 Dexamethasone Sodium Phosphate (Decadron) 6 mg DAILY IVP 06/09/21 14:00 06/17/21 09:01 06/10/21 08:12 Sodium Chloride 1,000 ml @ 75 mls/hr [id number] IV 06/09/21 14:30 06/10/21 06:12 Remdesivir 200 mg/ Sodium Chloride 210 ml @ 210 mls/hr 1X ONCE IV 06/09/21 16:00 06/09/21 16:59 DC 06/09/21 15:55 Insulin Glargine (Lantus Syringe) 30 unit QHS SQ 06/09/21 21:00 06/09/21 20:29 Insulin Human Lispro (HumaLOG) 10 units TIDWMEALS SQ 06/09/21 18:00 06/10/21 09:06 Potassium Chloride (Klor-Con) 40 meq 1X ONCE PO 06/10/21 06:00 06/10/21 06:02 DC 06/10/21 06:25 Potassium Chloride (Klor-Con) 40 meq 1X ONCE PO 06/10/21 08:00 06/10/21 08:01 DC 06/10/21 08:11 Justifications for Admission Other Justification ASHLEY JAVED MD Jun 10, 2021 10:54
[2021-06-10] MEDS ORDERED: MAGNESIUM SULFATE 2GM 50 ML IV ONE (11:00)
[2021-06-10] MEDS ORDERED: MORPHINE SULFATE 2 MG/ML INJ. IVP PRN (11:00)
[2021-06-10] MEDS ORDERED: guaiFENesin/CODEINE 100mg/10mg 5 ML LIQUID PO PRN (11:00)
[2021-06-10] MEDS: cefTRIAXone IV Push 1 GM VIAL. IVP SCH (11:14)
[2021-06-10] MEDS: LIDO:MAALOX:BENADRYL 1:1:1 180 ML BOTTLE. PO PRN (11:17)
--- NOTE | 2021-06-10 11:18 | PDOC ---
PULMONARY PROGRESS NOTES DATE: 06/10/21 TIME: 11:17 Vitals Vital Signs Date Time Temp Pulse Resp B/P (MAP) Pulse Ox O2 Delivery O2 Flow Rate FiO2 06/10/21 10:00 84 42 127/78 (94) 94 Nasal Cannula 6.0 06/10/21 08:00 97.8 97.8 Labs Laboratory Tests Test 06/08/21 18:03 06/08/21 18:36 06/08/21 19:53 06/08/21 20:33 White Blood Count 9.7 x10^3/uL (4.0-11.0) Red Blood Count 5.06 x10^6/uL (3.50-5.40) Hemoglobin 14.9 g/dL (12.0-15.5) Hematocrit 44.2 % (36.0-47.0) Mean Corpuscular Volume 87 fL (79-100) Mean Corpuscular Hemoglobin 29 pg (25-35) Mean Corpuscular Hemoglobin Concent 34 g/dL (31-37) Red Cell Distribution Width 15.0 % (11.5-14.5) Platelet Count 338 x10^3/uL (140-400) Neutrophils (%) (Auto) 80 % (31-73) Lymphocytes (%) (Auto) 11 % (24-48) Monocytes (%) (Auto) 8 % (0-9) Eosinophils (%) (Auto) 0 % (0-3) Basophils (%) (Auto) 1 % (0-3) Neutrophils # (Auto) 7.8 x10^3/uL (1.8-7.7) Lymphocytes # (Auto) 1.0 x10^3/uL (1.0-4.8) Monocytes # (Auto) 0.8 x10^3/uL (0.0-1.1) Eosinophils # (Auto) 0.0 x10^3/uL (0.0-0.7) Basophils # (Auto) 0.0 x10^3/uL (0.0-0.2) Sodium Level 131 mmol/L (136-145) Potassium Level 3.0 mmol/L (3.5-5.1) Chloride Level 99 mmol/L (98-107) Carbon Dioxide Level 11 mmol/L (21-32) Anion Gap 21 (6-14) Blood Urea Nitrogen 13 mg/dL (7-20) Creatinine 1.0 mg/dL (0.6-1.0) Estimated GFR (Cockcroft-Gault) 60.8 BUN/Creatinine Ratio 13 (6-20) Glucose Level 453 mg/dL (70-99) Lactic Acid Level 3.0 mmol/L (0.4-2.0) Calcium Level 9.1 mg/dL (8.5-10.1) Magnesium Level 2.3 mg/dL (1.8-2.4) Total Bilirubin 0.9 mg/dL (0.2-1.0) Aspartate Amino Transf (AST/SGOT) 39 U/L (15-37) Alanine Aminotransferase (ALT/SGPT) 85 U/L (14-59) Alkaline Phosphatase 143 U/L (46-116) Troponin I High Sensitivity < 4 ng/L (4-50) MO-Wsx-H-Type Natriuretic Peptide 35 pg/mL (0-124) Total Protein 8.5 g/dL (6.4-8.2) Albumin 2.6 g/dL (3.4-5.0) Albumin/Globulin Ratio 0.4 (1.0-1.7) Acetone Level Sm pos (NEG) Influenza Type A Antigen Negative (NEGATIVE) Influenza Type B Antigen Negative (NEGATIVE) SARS-CoV-2 RNA (MARTINEZ) Positive (Negative) SARS-CoV-2 Antigen (Rapid) Negative (NEGATIVE) Group A Streptococcus Rapid Negative (NEGATIVE) O2 Saturation 93 % (92-99) Arterial Blood pH 7.24 (7.35-7.45) Arterial Blood pCO2 at Patient Temp 17 mmHg (35-46) Arterial Blood pO2 at Patient Temp 72 mmHg (75-108) Arterial Blood HCO3 7 mmol/L (21-28) Arterial Blood Base Excess -18 mmol/L (-3-3) FiO2 28 Urine Collection Type Unknown Urine Color Yellow Urine Clarity Clear Urine pH 6.5 (<5.0-8.0) Urine Specific [place] >=1.030 (1.000-1.030) Urine Protein 100 mg/dL (NEG-TRACE) Urine Glucose (UA) >=1000 mg/dL (NEG) Urine Ketones (Stick) >=80 mg/dL (NEG) Urine Blood Large (NEG) Urine Nitrite Negative (NEG) Urine Bilirubin Small (NEG) Urine Urobilinogen Dipstick 1.0 mg/dL (0.2 mg/dL) Urine Leukocyte Esterase Negative (NEG) Urine RBC Tntc /HPF (0-2) Urine WBC 1-4 /HPF (0-4) Urine Squamous Epithelial Cells Mod /LPF Urine Bacteria Few /HPF (0-FEW) Urine Mucus Marked /LPF Urine Yeast Present /HPF Test 06/08/21 21:08 06/08/21 22:24 06/08/21 22:56 06/08/21 23:36 Glucose (Fingerstick) 333 mg/dL (70-99) 301 mg/dL (70-99) 250 mg/dL (70-99) Sodium Level 136 mmol/L (136-145) Potassium Level 3.2 mmol/L (3.5-5.1) Chloride Level 110 mmol/L (98-107) Carbon Dioxide Level 10 mmol/L (21-32) Anion Gap 16 (6-14) Blood Urea Nitrogen 13 mg/dL (7-20) Creatinine 0.7 mg/dL (0.6-1.0) Estimated GFR (Cockcroft-Gault) 91.8 Glucose Level 313 mg/dL (70-99) Lactic Acid Level 0.8 mmol/L (0.4-2.0) Calcium Level 8.0 mg/dL (8.5-10.1) Phosphorus Level 1.1 mg/dL (2.6-4.7) Magnesium Level 2.2 mg/dL (1.8-2.4) Test 06/09/21 00:36 06/09/21 01:45 06/09/21 02:47 06/09/21 03:20 Glucose (Fingerstick) 287 mg/dL (70-99) 198 mg/dL (70-99) 163 mg/dL (70-99) Sodium Level 140 mmol/L (136-145) Potassium Level 2.7 mmol/L (3.5-5.1) Chloride Level 111 mmol/L (98-107) Carbon Dioxide Level 15 mmol/L (21-32) Anion Gap 14 (6-14) Blood Urea Nitrogen 12 mg/dL (7-20) Creatinine 0.6 mg/dL (0.6-1.0) Estimated GFR (Cockcroft-Gault) 109.6 Glucose Level 160 mg/dL (70-99) Calcium Level 8.5 mg/dL (8.5-10.1) Phosphorus Level 0.6 mg/dL (2.6-4.7) Magnesium Level 2.3 mg/dL (1.8-2.4) Test 06/09/21 04:00 06/09/21 04:47 06/09/21 06:04 06/09/21 06:49 Glucose (Fingerstick) 148 mg/dL (70-99) 189 mg/dL (70-99) 266 mg/dL (70-99) 256 mg/dL (70-99) Test 06/09/21 08:05 06/09/21 08:07 06/09/21 09:14 06/09/21 10:19 Sodium Level 138 mmol/L (136-145) Potassium Level 2.3 mmol/L (3.5-5.1) Chloride Level 110 mmol/L (98-107) Carbon Dioxide Level 14 mmol/L (21-32) Anion Gap 14 (6-14) Blood Urea Nitrogen 10 mg/dL (7-20) Creatinine 0.4 mg/dL (0.6-1.0) Estimated GFR (Cockcroft-Gault) 175.0 Glucose Level 236 mg/dL (70-99) Hemoglobin A1c 12.2 % (4.8-5.6) Calcium Level 8.4 mg/dL (8.5-10.1) Phosphorus Level 0.6 mg/dL (2.6-4.7) Magnesium Level 2.1 mg/dL (1.8-2.4) Glucose (Fingerstick) 203 mg/dL (70-99) 197 mg/dL (70-99) 187 mg/dL (70-99) Test 06/09/21 12:23 06/09/21 12:35 06/09/21 17:08 06/09/21 20:18 Glucose (Fingerstick) 272 mg/dL (70-99) 377 mg/dL (70-99) 299 mg/dL (70-99) Sodium Level 134 mmol/L (136-145) Potassium Level 3.1 mmol/L (3.5-5.1) Chloride Level 108 mmol/L (98-107) Carbon Dioxide Level 15 mmol/L (21-32) Anion Gap 11 (6-14) Blood Urea Nitrogen 9 mg/dL (7-20) Creatinine 0.5 mg/dL (0.6-1.0) Estimated GFR (Cockcroft-Gault) 135.3 Glucose Level 280 mg/dL (70-99) Calcium Level 7.9 mg/dL (8.5-10.1) Phosphorus Level 1.9 mg/dL (2.6-4.7) Magnesium Level 2.1 mg/dL (1.8-2.4) Test 06/10/21 03:55 06/10/21 08:53 06/10/21 10:20 Sodium Level 138 mmol/L (136-145) Potassium Level 2.6 mmol/L (3.5-5.1) 2.8 mmol/L (3.5-5.1) Chloride Level 108 mmol/L (98-107) Carbon Dioxide Level 16 mmol/L (21-32) Anion Gap 14 (6-14) Blood Urea Nitrogen 11 mg/dL (7-20) Creatinine 0.4 mg/dL (0.6-1.0) Estimated GFR (Cockcroft-Gault) 175.0 Glucose Level 276 mg/dL (70-99) Calcium Level 7.9 mg/dL (8.5-10.1) Phosphorus Level 1.6 mg/dL (2.6-4.7) Magnesium Level 1.9 mg/dL (1.8-2.4) Glucose (Fingerstick) 284 mg/dL (70-99) Laboratory Tests Test 06/09/21 12:23 06/09/21 12:35 06/09/21 17:08 06/09/21 20:18 Glucose (Fingerstick) 272 mg/dL (70-99) 377 mg/dL (70-99) 299 mg/dL (70-99) Sodium Level 134 mmol/L (136-145) Potassium Level 3.1 mmol/L (3.5-5.1) Chloride Level 108 mmol/L (98-107) Carbon Dioxide Level 15 mmol/L (21-32) Anion Gap 11 (6-14) Blood Urea Nitrogen 9 mg/dL (7-20) Creatinine 0.5 mg/dL (0.6-1.0) Estimated GFR (Cockcroft-Gault) 135.3 Glucose Level 280 mg/dL (70-99) Calcium Level 7.9 mg/dL (8.5-10.1) Phosphorus Level 1.9 mg/dL (2.6-4.7) Magnesium Level 2.1 mg/dL (1.8-2.4) Test 06/10/21 03:55 06/10/21 08:53 06/10/21 10:20 Sodium Level 138 mmol/L (136-145) Potassium Level 2.6 mmol/L (3.5-5.1) 2.8 mmol/L (3.5-5.1) Chloride Level 108 mmol/L (98-107) Carbon Dioxide Level 16 mmol/L (21-32) Anion Gap 14 (6-14) Blood Urea Nitrogen 11 mg/dL (7-20) Creatinine 0.4 mg/dL (0.6-1.0) Estimated GFR (Cockcroft-Gault) 175.0 Glucose Level 276 mg/dL (70-99) Calcium Level 7.9 mg/dL (8.5-10.1) Phosphorus Level 1.6 mg/dL (2.6-4.7) Magnesium Level 1.9 mg/dL (1.8-2.4) Glucose (Fingerstick) 284 mg/dL (70-99) Impression . Full note dictated COVID-19 viral pneumonia DKA Abnormal x-ray Concur with current medical management JANET GARNETT MD Jun 10, 2021 11:18
--- NOTE | 2021-06-10 11:46 | CONS ---
DATE OF CONSULTATION: 06/10/2021 ATTENDING PHYSICIAN: Kerri Butcher DO. REASON FOR CONSULTATION: The patient is seen in pulmonary consultation at the request of Dr. Beck for increasing hypoxemia. HISTORY OF PRESENT ILLNESS: The patient is a 41-year-old female with no significant past pulmonary history, presented to the Emergency Room complaining of nausea and vomiting x 1 week. She also noted that she had increasing shortness of breath. She was evaluated in the Emergency Room, had a chest x-ray revealing bilateral pulmonary infiltrates compatible with atypical pneumonia. She had SARS-CoV-2 testing, which was positive. She was admitted. I was asked to see her in consultation. She has had increasing amounts of oxygen requirements. She denies productive cough. PAST MEDICAL AND PAST SURGICAL HISTORY: Otherwise, unremarkable. SOCIAL HISTORY: She has never smoked. FAMILY HISTORY: Hyperlipidemia and diabetes. REVIEW OF SYSTEMS: As indicated above, otherwise other systems were reviewed and negative. CURRENT MEDICATIONS: List was reviewed. She is currently receiving remdesivir, DVT prophylaxis, dexamethasone, guaifenesin, and doxycycline. PHYSICAL EXAMINATION: VITAL SIGNS: Stable. O2 saturation was greater than 92%, currently on 2 liters. HEENT: Eyes: The sclerae were nonicteric. NECK: Jugular venous distention was not elevated. No lymphadenopathy. CHEST: Full expansion. LUNGS: Rales throughout both lung fernandez. CARDIOVASCULAR: Regular rate and rhythm with S1, S2, no S3. ABDOMEN: Soft. EXTREMITIES: No clubbing, cyanosis or edema. LABORATORY DATA: Arterial blood gas; pH of 7.27, pCO2 of 17, pO2 of 72, bicarbonate was 7. White count was 9.7. Electrolytes were noted. Sodium was 138, potassium was low, phosphorus was low. Acetone level was small positive. UA was noted. Serology was positive for SARS-CoV-2, negative for influenza A and B. Blood culture so far negative. IMPRESSION: 1. Acute hypoxemic respiratory failure secondary to COVID-19 viral pneumonia. 2. Metabolic acidosis with an anion gap related to diabetic ketoacidosis. 3. Abnormal x-ray, compatible with viral pneumonia, possibly bacterial pneumonia. 4. Electrolyte abnormalities. 5. Sepsis. 6. COVID-19 viral pneumonia. PLAN: 1. Continue current support with IV fluids. 2. IV antibiotics. 3. Remdesivir. 4. Dexamethasone. 5. Monitor electrolytes. 6. Replace potassium and phosphorus. 7. Monitor liver chemistries. 8. Check hemoglobin A1c. I do appreciate the privilege in sharing in the patient's care. OSMANY/LORENZO DR: [place] TID: [id number]
[2021-06-10] MEDS ORDERED: POTASSIUM PHOS,M-BASIC-D-BASIC 15 MMOL in IV NORMAL SALINE 100ML 100 ML IV ONE (12:00)
[2021-06-10] MEDS: ENOXAPARIN 40 MG/0.4 ML SYRINGE. SQ SCH (12:35)
[2021-06-10] MEDS: ASCORBIC ACID 1,000 MG TABLET PO SCH (12:35)
--- NOTE | 2021-06-10 15:07 | NUR ---
SS following up with discharge planning. SS reviewed pt chart and discussed with pt RN. Pt is currently requiring oxygen at six liters nasal canula. COVID19 positive. Pt on IV Remdesivir, IV Decadron, IV Rocephin, and PO Doxycycline. Self pay. Med Assist following. SS will continue to follow for discharge planning.
[2021-06-10] MEDS: REMDESIVIR 100mg in NORMAL SALINE 250ML X 4 DAYS IV SCH (16:15)
[2021-06-10] MEDS: BENZOCAINE/MENTHOL LOZENGE. PO PRN (17:24)
[2021-06-10] MEDS: INSULIN GLARGINE SYRINGE. SQ SCH (20:32)
[2021-06-11] VITALS (18 sets, daily range): BP systolic 103–156; BP diastolic 63–78
[2021-06-11] MEDS: IV NORMAL SALINE 1000ML BAG 1,000 ML IV SCH ×2 (06:30→16:56)
[2021-06-11 06:42] LABS: ALBUMIN 1.8 g/dL (3.4-5.0); ALBUMIN/GLOBULIN RATIO 0.5 (1.0-1.7); CALCIUM 7.6 mg/dL (8.5-10.1); CREATININE 0.5 mg/dL (0.6-1.0); GFR 135.3; TOTAL BILIRUBIN 0.5 mg/dL (0.2-1.0); TOTAL PROTEIN 5.7 g/dL (6.4-8.2)
[2021-06-11] MEDS: INSULIN LISPRO 300 UNITS/3 ML VIAL. SQ SCH ×6 (08:00→16:59)
--- NOTE | 2021-06-11 08:13 | PDOC ---
PULMONARY PROGRESS NOTES DATE: 06/11/21 TIME: 08:13 Subjective Patient currently on 6 L of oxygen, nasal cannula, at times she is anxious Not more short of breath Vitals Vital Signs Date Time Temp Pulse Resp B/P (MAP) Pulse Ox O2 Delivery O2 Flow Rate FiO2 06/11/21 06:00 74 35 123/71 (88) 95 Nasal Cannula 6.0 06/11/21 04:00 98.5 98.5 ROS: No Nausea, No Chest Pain, No Abdominal Pain, No Increase Cough General: Alert Lungs: Crackles Cardiovascular: S1, S2 Abdomen: Soft, Non-tender Neuro Exam: Alert Extremities: No Edema Skin: Warm Labs Laboratory Tests Test 06/09/21 09:14 06/09/21 10:19 06/09/21 12:23 06/09/21 12:35 Glucose (Fingerstick) 197 mg/dL (70-99) 187 mg/dL (70-99) 272 mg/dL (70-99) Sodium Level 134 mmol/L (136-145) Potassium Level 3.1 mmol/L (3.5-5.1) Chloride Level 108 mmol/L (98-107) Carbon Dioxide Level 15 mmol/L (21-32) Anion Gap 11 (6-14) Blood Urea Nitrogen 9 mg/dL (7-20) Creatinine 0.5 mg/dL (0.6-1.0) Estimated GFR (Cockcroft-Gault) 135.3 Glucose Level 280 mg/dL (70-99) Calcium Level 7.9 mg/dL (8.5-10.1) Phosphorus Level 1.9 mg/dL (2.6-4.7) Magnesium Level 2.1 mg/dL (1.8-2.4) Test 06/09/21 17:08 06/09/21 20:18 06/10/21 03:55 06/10/21 08:53 Glucose (Fingerstick) 377 mg/dL (70-99) 299 mg/dL (70-99) 284 mg/dL (70-99) Sodium Level 138 mmol/L (136-145) Potassium Level 2.6 mmol/L (3.5-5.1) Chloride Level 108 mmol/L (98-107) Carbon Dioxide Level 16 mmol/L (21-32) Anion Gap 14 (6-14) Blood Urea Nitrogen 11 mg/dL (7-20) Creatinine 0.4 mg/dL (0.6-1.0) Estimated GFR (Cockcroft-Gault) 175.0 Glucose Level 276 mg/dL (70-99) Calcium Level 7.9 mg/dL (8.5-10.1) Phosphorus Level 1.6 mg/dL (2.6-4.7) Magnesium Level 1.9 mg/dL (1.8-2.4) Test 06/10/21 10:20 06/10/21 12:24 06/10/21 17:20 06/10/21 23:55 Potassium Level 2.8 mmol/L (3.5-5.1) Glucose (Fingerstick) 174 mg/dL (70-99) 177 mg/dL (70-99) 155 mg/dL (70-99) Test 06/11/21 04:45 Sodium Level 140 mmol/L (136-145) Potassium Level 3.0 mmol/L (3.5-5.1) Chloride Level 111 mmol/L (98-107) Carbon Dioxide Level 18 mmol/L (21-32) Anion Gap 11 (6-14) Blood Urea Nitrogen 11 mg/dL (7-20) Creatinine 0.5 mg/dL (0.6-1.0) Estimated GFR (Cockcroft-Gault) 135.3 BUN/Creatinine Ratio 22 (6-20) Glucose Level 134 mg/dL (70-99) Calcium Level 7.6 mg/dL (8.5-10.1) Total Bilirubin 0.5 mg/dL (0.2-1.0) Aspartate Amino Transf (AST/SGOT) 57 U/L (15-37) Alanine Aminotransferase (ALT/SGPT) 79 U/L (14-59) Alkaline Phosphatase 97 U/L (46-116) Total Protein 5.7 g/dL (6.4-8.2) Albumin 1.8 g/dL (3.4-5.0) Albumin/Globulin Ratio 0.5 (1.0-1.7) Laboratory Tests Test 06/10/21 08:53 06/10/21 10:20 06/10/21 12:24 06/10/21 17:20 Glucose (Fingerstick) 284 mg/dL (70-99) 174 mg/dL (70-99) 177 mg/dL (70-99) Potassium Level 2.8 mmol/L (3.5-5.1) Test 06/10/21 23:55 06/11/21 04:45 Glucose (Fingerstick) 155 mg/dL (70-99) Sodium Level 140 mmol/L (136-145) Potassium Level 3.0 mmol/L (3.5-5.1) Chloride Level 111 mmol/L (98-107) Carbon Dioxide Level 18 mmol/L (21-32) Anion Gap 11 (6-14) Blood Urea Nitrogen 11 mg/dL (7-20) Creatinine 0.5 mg/dL (0.6-1.0) Estimated GFR (Cockcroft-Gault) 135.3 BUN/Creatinine Ratio 22 (6-20) Glucose Level 134 mg/dL (70-99) Calcium Level 7.6 mg/dL (8.5-10.1) Total Bilirubin 0.5 mg/dL (0.2-1.0) Aspartate Amino Transf (AST/SGOT) 57 U/L (15-37) Alanine Aminotransferase (ALT/SGPT) 79 U/L (14-59) Alkaline Phosphatase 97 U/L (46-116) Total Protein 5.7 g/dL (6.4-8.2) Albumin 1.8 g/dL (3.4-5.0) Albumin/Globulin Ratio 0.5 (1.0-1.7) Impression . IMPRESSION: 1. Acute hypoxemic respiratory failure secondary to COVID-19 viral pneumonia. 2. Metabolic acidosis with an anion gap related to diabetic ketoacidosis. 3. Abnormal x-ray, compatible with viral pneumonia, possibly bacterial pneumonia. 4. Electrolyte abnormalities. 5. Sepsis. 6. COVID-19 viral pneumonia. Plan . Updated 06/11 Continue current support IV antibiotics Dexamethasone Remdesivir Monitor labs Discussed with RN 06/10 PLAN: 1. Continue current support with IV fluids. 2. IV antibiotics. 3. Remdesivir. 4. Dexamethasone. 5. Monitor electrolytes. 6. Replace potassium and phosphorus. 7. Monitor liver chemistries. 8. Check hemoglobin A1c. I do appreciate the privilege in sharing in the patient's care. JANET GARNETT MD Jun 11, 2021 08:13
[2021-06-11] MEDS: POTASSIUM CHLORIDE 10MEQ 100 ML IV SCH ×4 (08:33→12:54)
[2021-06-11] MEDS: DOXYCYCLINE HYCLATE 100 MG TABLET PO SCH ×2 (09:41→20:38)
[2021-06-11] MEDS: ZINC SULFATE 220 MG CAPSULE. PO SCH (09:41)
[2021-06-11] MEDS: LACTOBACILLUS RHAMNOSUS GG 1 CAPSULE. PO SCH ×2 (09:41→20:38)
[2021-06-11] MEDS: DEXAMETHASONE SOD PHOS 4 MG/ML VIAL IVP SCH (09:41)
[2021-06-11] MEDS: ASCORBIC ACID 1,000 MG TABLET PO SCH (09:41)
[2021-06-11] MEDS: cefTRIAXone IV Push 1 GM VIAL. IVP SCH (12:00)
--- NOTE | 2021-06-11 13:42 | PDOC ---
[employer] PROGRESS NOTE Date of Service DOS: DATE: 06/11/21 TIME: 13:37 Chief Complaint Chief Complaint COVID 19 pneumoina sepsis and Pneumonia - with abnormal CXR, cough. Will cover with doxycycline. Given rocephin and azithromycin in ED DKA (diabetic ketoacidosis) - insulin GTT. DKA protocol q4hr BMP, phos, mag, monitor for gap, if gap closes, and she has appetite will initiate SC glargine insulin Hypokalemia - IV replacement Hyponatremia - likely pseudohyponatremia from hyperglycemia, will monitor Sepsis - due to above, will monitor fluids, given empiric IV antibiotics Headache - History of Present Illness History of Present Illness start IV mprhine Potassium still terrible low, give IV mag, repeat PO K+, discussed with RN, ICU replacement electrolytes ordered 80 PO this AM, will repeat PO K+ Vitals/I&O Vitals/I&O: Vital Signs Date Time Temp Pulse Resp B/P (MAP) Pulse Ox O2 Delivery O2 Flow Rate FiO2 06/11/21 06:00 74 35 123/71 (88) 95 Nasal Cannula 6.0 06/11/21 04:00 98.5 98.5 I & O 06/10/21 06/10/21 06/11/21 15:00 23:00 07:00 Intake Total 911 ml 928 ml Balance 911 ml 928 ml Physical Exam General: Alert, Oriented X3, Cooperative, mild distress Heart: Regular rate Abdomen: Normal bowel sounds, Soft, No tenderness, No hepatosplenomegaly, No masses Extremities: No clubbing, No cyanosis, No edema, Normal pulses, No tenderness/swelling Skin: No rashes, No breakdown, No significant lesion Labs Labs: Laboratory Tests Test 06/10/21 17:20 06/10/21 23:55 06/11/21 04:45 06/11/21 08:41 Glucose (Fingerstick) 177 mg/dL (70-99) 155 mg/dL (70-99) 129 mg/dL (70-99) Sodium Level 140 mmol/L (136-145) Potassium Level 3.0 mmol/L (3.5-5.1) Chloride Level 111 mmol/L (98-107) Carbon Dioxide Level 18 mmol/L (21-32) Anion Gap 11 (6-14) Blood Urea Nitrogen 11 mg/dL (7-20) Creatinine 0.5 mg/dL (0.6-1.0) Estimated GFR (Cockcroft-Gault) 135.3 BUN/Creatinine Ratio 22 (6-20) Glucose Level 134 mg/dL (70-99) Calcium Level 7.6 mg/dL (8.5-10.1) Total Bilirubin 0.5 mg/dL (0.2-1.0) Aspartate Amino Transf (AST/SGOT) 57 U/L (15-37) Alanine Aminotransferase (ALT/SGPT) 79 U/L (14-59) Alkaline Phosphatase 97 U/L (46-116) Total Protein 5.7 g/dL (6.4-8.2) Albumin 1.8 g/dL (3.4-5.0) Albumin/Globulin Ratio 0.5 (1.0-1.7) Test 06/11/21 11:10 Glucose (Fingerstick) 134 mg/dL (70-99) Assessment and Plan Assessmemt and Plan Problems Medical Problems: (1) Atypical pneumonia Status: Acute (2) DKA (diabetic ketoacidosis) Status: Acute (3) Hypokalemia Status: Acute (4) Hyponatremia Status: Acute (5) Person under investigation for COVID-19 Status: Acute (6) Sepsis Status: Acute Comment Review of Relevant I have reviewed the following items leydi (where applicable) has been applied. Medications: Current Medications Medications (Trade) Dose Ordered Sig/Andres Route PRN Reason Start Time Stop Time Status Last Admin Dose Admin Remdesivir 100 mg/ Sodium Chloride 230 ml @ 460 mls/hr Q24H IV 06/10/21 16:00 06/13/21 16:29 06/10/21 16:15 Insulin Glargine (Lantus Syringe) 40 unit QHS SQ 06/10/21 21:00 06/10/21 20:32 Zinc Sulfate (Orazinc) 220 mg DAILY PO 06/11/21 09:00 06/11/21 09:41 Potassium Chloride/Water 100 ml @ 100 mls/hr Q1HR IV 06/11/21 08:00 06/11/21 11:59 DC 06/11/21 12:54 Justifications for Admission Other Justification ASHLEY JAVED MD Jun 11, 2021 13:42
--- NOTE | 2021-06-11 14:49 | NUR ---
SS following up with discharge planning. SS reviewed pt chart and discussed with pt RN. Pt is currently requiring oxygen at six liters nasal canula. COVID19 positive. Pt on IV Remdesivir, IV Decadron, IV Rocephin, and PO Doxycycline. ADA diet. Self pay. Med Assist following. SS will continue to follow for discharge planning.
--- NOTE | 2021-06-11 15:27 | NUR ---
Report to ADELITA Rivero on [facility] via phone. Belongings gathered to take up with pt. Pt transferred to floor bed and transported to rm 565 with belongings.
[2021-06-11] MEDS: ENOXAPARIN 40 MG/0.4 ML SYRINGE. SQ SCH (15:42)
[2021-06-11] MEDS: REMDESIVIR 100mg in NORMAL SALINE 250ML X 4 DAYS IV SCH (15:47)
--- NOTE | 2021-06-11 16:15 | NUR ---
Pt transferred from ICU to room 565. Received report from ADELITA Stewart via telephone. Pt bed in lowest position, call light in reach, fresh water given, and pt denied BSC and pain at this time. IVF running. Belongings at the bedside. Will continue to monitor.
[2021-06-11] MEDS: guaiFENesin DM 200MG/20MG 10 ML SYRUP PO PRN (20:38)
[2021-06-11] MEDS: BENZOCAINE/MENTHOL LOZENGE. PO PRN (20:38)
[2021-06-11] MEDS: INSULIN GLARGINE SYRINGE. SQ SCH (20:40)
[2021-06-12 03:16] VITALS: BP 126/75
[2021-06-12 07:00] VITALS: BP 113/71
[2021-06-12] MEDS: INSULIN LISPRO 300 UNITS/3 ML VIAL. SQ SCH ×6 (08:00→16:49)
[2021-06-12] MEDS: ZINC SULFATE 220 MG CAPSULE. PO SCH (08:31)
[2021-06-12] MEDS: DOXYCYCLINE HYCLATE 100 MG TABLET PO SCH ×2 (08:31→21:50)
[2021-06-12] MEDS: LACTOBACILLUS RHAMNOSUS GG 1 CAPSULE. PO SCH ×2 (08:31→21:50)
[2021-06-12] MEDS: ASCORBIC ACID 1,000 MG TABLET PO SCH (08:31)
[2021-06-12] MEDS: DEXAMETHASONE SOD PHOS 4 MG/ML VIAL IVP SCH (08:32)
[2021-06-12] MEDS: IV NORMAL SALINE 1000ML BAG 1,000 ML IV SCH ×2 (08:32→18:28)
--- NOTE | 2021-06-12 08:54 | PDOC ---
PULMONARY PROGRESS NOTES DATE: 06/12/21 TIME: 08:54 Subjective No new complaints patient currently on 6 L of oxygen, nasal cannula, at times she is anxious Not more short of breath Vitals Vital Signs Date Time Temp Pulse Resp B/P (MAP) Pulse Ox O2 Delivery O2 Flow Rate FiO2 06/12/21 07:00 99.2 75 20 113/71 (85) 93 Nasal Cannula 99.2 06/11/21 20:00 6.0 ROS: No Nausea, No Chest Pain, No Abdominal Pain, No Increase Cough General: Alert Lungs: Crackles Cardiovascular: S1, S2 Abdomen: Soft, Non-tender Neuro Exam: Alert Extremities: No Edema Skin: Warm Labs Laboratory Tests Test 06/10/21 10:20 06/10/21 12:24 06/10/21 17:20 06/10/21 23:55 Potassium Level 2.8 mmol/L (3.5-5.1) Glucose (Fingerstick) 174 mg/dL (70-99) 177 mg/dL (70-99) 155 mg/dL (70-99) Test 06/11/21 04:45 06/11/21 08:41 06/11/21 11:10 06/11/21 16:43 Sodium Level 140 mmol/L (136-145) Potassium Level 3.0 mmol/L (3.5-5.1) Chloride Level 111 mmol/L (98-107) Carbon Dioxide Level 18 mmol/L (21-32) Anion Gap 11 (6-14) Blood Urea Nitrogen 11 mg/dL (7-20) Creatinine 0.5 mg/dL (0.6-1.0) Estimated GFR (Cockcroft-Gault) 135.3 BUN/Creatinine Ratio 22 (6-20) Glucose Level 134 mg/dL (70-99) Calcium Level 7.6 mg/dL (8.5-10.1) Total Bilirubin 0.5 mg/dL (0.2-1.0) Aspartate Amino Transf (AST/SGOT) 57 U/L (15-37) Alanine Aminotransferase (ALT/SGPT) 79 U/L (14-59) Alkaline Phosphatase 97 U/L (46-116) Total Protein 5.7 g/dL (6.4-8.2) Albumin 1.8 g/dL (3.4-5.0) Albumin/Globulin Ratio 0.5 (1.0-1.7) Glucose (Fingerstick) 129 mg/dL (70-99) 134 mg/dL (70-99) 215 mg/dL (70-99) Test 06/11/21 20:30 06/12/21 07:59 Glucose (Fingerstick) 230 mg/dL (70-99) 96 mg/dL (70-99) Laboratory Tests Test 06/11/21 11:10 06/11/21 16:43 06/11/21 20:30 06/12/21 07:59 Glucose (Fingerstick) 134 mg/dL (70-99) 215 mg/dL (70-99) 230 mg/dL (70-99) 96 mg/dL (70-99) Impression . IMPRESSION: 1. Acute hypoxemic respiratory failure secondary to COVID-19 viral pneumonia. 2. Metabolic acidosis with an anion gap related to diabetic ketoacidosis. 3. Abnormal x-ray, compatible with viral pneumonia, possibly bacterial pneumonia. 4. Electrolyte abnormalities. 5. Sepsis. 6. COVID-19 viral pneumonia. 7. New onset diabetes Plan . Updated 06/12 Continue current support IV antibiotics Dexamethasone Remdesivir Blood sugar management per PCP Titrate FiO2 down updated 06/11 Continue current support IV antibiotics Dexamethasone Remdesivir Monitor labs Discussed with JANET FARLEY MD Jun 12, 2021 08:54
--- NOTE | 2021-06-12 10:32 | NUR ---
SW following. Discussed with RN, pt from home with family, 6L (does not use oxygen at home), ada diet. COVID-19 positive. Pt still getting Remdesivir. Med Assist following for self pay status. SW notified RN that oxygen will cost $120 per month if pt requires at discharge. SW will continue to follow.
[2021-06-12 11:00] VITALS: BP 117/71
--- NOTE | 2021-06-12 11:56 | PDOC ---
[employer] PROGRESS NOTE Date of Service DOS: DATE: 06/12/21 TIME: 11:55 Chief Complaint Chief Complaint COVID 19 pneumoina sepsis and Pneumonia - with abnormal CXR, cough. Will cover with doxycycline. Given rocephin and azithromycin in ED DKA (diabetic ketoacidosis) - insulin GTT. DKA protocol q4hr BMP, phos, mag, monitor for gap, if gap closes, and she has appetite will initiate SC glargine insulin Hypokalemia - IV replacement Hyponatremia - likely pseudohyponatremia from hyperglycemia, will monitor Sepsis - due to above, will monitor fluids, given empiric IV antibiotics Headache - History of Present Illness History of Present Illness 06/12/2021 Patient seen and examined Chart reviewed Discussed with RN We have her on full Covid protocol including remdesivir start IV mprhine Potassium still terrible low, give IV mag, repeat PO K+, discussed with RN, ICU replacement electrolytes ordered 80 PO this AM, will repeat PO K+ Vitals/I&O Vitals/I&O: Vital Signs Date Time Temp Pulse Resp B/P (MAP) Pulse Ox O2 Delivery O2 Flow Rate FiO2 06/12/21 08:00 Nasal Cannula 6.0 06/12/21 07:00 99.2 75 20 113/71 (85) 93 99.2 I & O 06/11/21 06/11/21 06/12/21 15:00 23:00 07:00 Intake Total 750 ml 2183 ml Output Total 1 ml 200 ml Balance 749 ml 2183 ml -200 ml Physical Exam General: Alert, Oriented X3, Cooperative, mild distress Heart: Regular rate Lungs: Crackles Abdomen: Normal bowel sounds, Soft, No tenderness, No hepatosplenomegaly, No masses Extremities: No clubbing, No cyanosis, No edema, Normal pulses, No tenderness/swelling Skin: No rashes, No breakdown, No significant lesion Labs Labs: Laboratory Tests Test 06/11/21 16:43 06/11/21 20:30 06/12/21 07:59 06/12/21 11:40 Glucose (Fingerstick) 215 mg/dL (70-99) 230 mg/dL (70-99) 96 mg/dL (70-99) 238 mg/dL (70-99) Assessment and Plan Assessmemt and Plan Problems Medical Problems: (1) Atypical pneumonia Status: Acute (2) DKA (diabetic ketoacidosis) Status: Acute (3) Hypokalemia Status: Acute (4) Hyponatremia Status: Acute (5) Person under investigation for COVID-19 Status: Acute (6) Sepsis Status: Acut Covid-19 respiratory failure Plan Covid protocol Remdesivir IV antibiotics Beta agonist Oxygen Multiple vitamins and minerals Antitussives Aspirin Lovenox Home meds Trend labs Encourage p.o. intake Full code Appreciate subspecialist input Comment Review of Relevant I have reviewed the following items leydi (where applicable) has been applied. Justifications for Admission Other Justification VERITO CAPUTO III DO Jun 12, 2021 11:56
[2021-06-12] MEDS: ENOXAPARIN 40 MG/0.4 ML SYRINGE. SQ SCH (11:59)
[2021-06-12] MEDS: FLUTICASONE 50MCG/NASAL SPRAY 16GM BOTTLE. NS SCH (11:59)
[2021-06-12] MEDS: cefTRIAXone IV Push 1 GM VIAL. IVP SCH (12:00)
[2021-06-12 15:00] VITALS: BP 116/71
[2021-06-12] MEDS: REMDESIVIR 100mg in NORMAL SALINE 250ML X 4 DAYS IV SCH (16:47)
[2021-06-12 19:00] VITALS: BP 107/67
[2021-06-12] MEDS: INSULIN GLARGINE SYRINGE. SQ SCH (21:51)
[2021-06-12 23:00] VITALS: BP 117/73
[2021-06-13] MEDS: BENZOCAINE/MENTHOL LOZENGE. PO PRN (01:13)
[2021-06-13 03:11] VITALS: BP 123/64
[2021-06-13 05:47] LABS: CALCIUM 7.6 mg/dL (8.5-10.1); CREATININE 0.5 mg/dL (0.6-1.0); GFR 135.3
[2021-06-13 05:52] LABS: POTASSIUM 2.4 mmol/L (3.5-5.1)
[2021-06-13] MEDS: IV NORMAL SALINE 1000ML BAG 1,000 ML IV SCH (06:17)
[2021-06-13] MEDS ORDERED: POTASSIUM CHLORIDE 20 MEQ TABLET.ER. PO ONE ×2 (06:30→08:30)
[2021-06-13 07:00] VITALS: BP 105/69
--- NOTE | 2021-06-13 07:28 | PDOC ---
PULMONARY PROGRESS NOTES DATE: 06/13/21 TIME: 07:27 Subjective on 02 6lpm sob better has occ cough Vitals Vital Signs Date Time Temp Pulse Resp B/P (MAP) Pulse Ox O2 Delivery O2 Flow Rate FiO2 06/13/21 03:11 97.3 65 18 123/64 (83) 93 Nasal Cannula 97.3 06/12/21 20:00 6.0 Comments nc at rrr no accessory muscle use abd obese ROS: No Nausea, No Chest Pain, No Abdominal Pain, No Increase Cough General: Alert Cardiovascular: S1, S2 Neuro Exam: Alert Extremities: No Edema Skin: No Rashes Labs Laboratory Tests Test 06/11/21 08:41 06/11/21 11:10 06/11/21 16:43 06/11/21 20:30 Glucose (Fingerstick) 129 mg/dL (70-99) 134 mg/dL (70-99) 215 mg/dL (70-99) 230 mg/dL (70-99) Test 06/12/21 07:59 06/12/21 11:40 06/12/21 16:39 06/12/21 21:45 Glucose (Fingerstick) 96 mg/dL (70-99) 238 mg/dL (70-99) 293 mg/dL (70-99) 236 mg/dL (70-99) Test 06/13/21 05:00 Sodium Level 141 mmol/L (136-145) Potassium Level 2.4 mmol/L (3.5-5.1) Chloride Level 107 mmol/L (98-107) Carbon Dioxide Level 23 mmol/L (21-32) Anion Gap 11 (6-14) Blood Urea Nitrogen 10 mg/dL (7-20) Creatinine 0.5 mg/dL (0.6-1.0) Estimated GFR (Cockcroft-Gault) 135.3 Glucose Level 104 mg/dL (70-99) Calcium Level 7.6 mg/dL (8.5-10.1) Magnesium Level 2.1 mg/dL (1.8-2.4) Laboratory Tests Test 06/12/21 07:59 06/12/21 11:40 06/12/21 16:39 06/12/21 21:45 Glucose (Fingerstick) 96 mg/dL (70-99) 238 mg/dL (70-99) 293 mg/dL (70-99) 236 mg/dL (70-99) Test 06/13/21 05:00 Sodium Level 141 mmol/L (136-145) Potassium Level 2.4 mmol/L (3.5-5.1) Chloride Level 107 mmol/L (98-107) Carbon Dioxide Level 23 mmol/L (21-32) Anion Gap 11 (6-14) Blood Urea Nitrogen 10 mg/dL (7-20) Creatinine 0.5 mg/dL (0.6-1.0) Estimated GFR (Cockcroft-Gault) 135.3 Glucose Level 104 mg/dL (70-99) Calcium Level 7.6 mg/dL (8.5-10.1) Magnesium Level 2.1 mg/dL (1.8-2.4) Impression . IMPRESSION: 1. Acute hypoxemic respiratory failure secondary to COVID-19 viral pneumonia. 2. Metabolic acidosis with an anion gap related to diabetic ketoacidosis. 3. Abnormal x-ray, compatible with viral pneumonia, possibly bacterial pneumonia. 4. Electrolyte abnormalities. 5. Sepsis. 6. COVID-19 viral pneumonia. 7. New onset diabetes Plan . Updated 06/11 titrate fio2 to keep sat 90% IV antibiotics Dexamethasone Remdesivir lovenox for dvt prophylaxis Blood sugar management per PCP discussed w rn Updated 06/12 Continue current support IV antibiotics Dexamethasone Remdesivir Blood sugar management per PCP Titrate FiO2 down updated 06/11 Continue current support IV antibiotics Dexamethasone Remdesivir Monitor labs Discussed with LAURY TYSON MD Jun 13, 2021 07:28
[2021-06-13] MEDS: INSULIN LISPRO 300 UNITS/3 ML VIAL. SQ SCH ×6 (08:00→17:13)
[2021-06-13] MEDS: LACTOBACILLUS RHAMNOSUS GG 1 CAPSULE. PO SCH ×2 (09:01→20:26)
[2021-06-13] MEDS: FLUTICASONE 50MCG/NASAL SPRAY 16GM BOTTLE. NS SCH (09:03)
[2021-06-13] MEDS: DOXYCYCLINE HYCLATE 100 MG TABLET PO SCH ×2 (09:03→20:27)
[2021-06-13] MEDS: ZINC SULFATE 220 MG CAPSULE. PO SCH (09:03)
[2021-06-13] MEDS: DEXAMETHASONE SOD PHOS 4 MG/ML VIAL IVP SCH (09:03)
[2021-06-13] MEDS: ASPIRIN CHEWABLE 81 MG TABLET. PO SCH (09:05)
[2021-06-13] MEDS: ASCORBIC ACID 1,000 MG TABLET PO SCH (09:05)
[2021-06-13 11:00] VITALS: BP 105/64
[2021-06-13] MEDS: ENOXAPARIN 40 MG/0.4 ML SYRINGE. SQ SCH (12:37)
[2021-06-13] MEDS: cefTRIAXone IV Push 1 GM VIAL. IVP SCH (12:37)
[2021-06-13] MEDS: POTASSIUM CL 40MEQ IN 0.9%NACL 1,000 ML IV SCH (12:38)
[2021-06-13] MEDS: POTASSIUM CHLORIDE 20MEQ 100 ML IV SCH ×2 (12:38→14:40)
[2021-06-13 15:30] VITALS: BP 105/72
[2021-06-13] MEDS: REMDESIVIR 100mg in NORMAL SALINE 250ML X 4 DAYS IV SCH (16:23)
--- NOTE | 2021-06-13 17:21 | PDOC ---
[facility] PROGRESS NOTE Date of Service DOS: DATE: 06/13/21 TIME: 17:20 Chief Complaint Chief Complaint COVID 19 pneumoina sepsis and Pneumonia - with abnormal CXR, cough. Will cover with doxycycline. Given rocephin and azithromycin in ED DKA (diabetic ketoacidosis) - insulin GTT. DKA protocol q4hr BMP, phos, mag, monitor for gap, if gap closes, and she has appetite will initiate SC glargine insulin Hypokalemia - IV replacement Hyponatremia - likely pseudohyponatremia from hyperglycemia, will monitor Sepsis - due to above, will monitor fluids, given empiric IV antibiotics Headache - History of Present Illness History of Present Illness 06/13 Patient evaluated and examined at bedside. Increase insulin today given her sugars. Continue COVID treatment weaning oxygen as tolerated. Plan of care discussed with bedside RN. 06/12/2021 Patient seen and examined Chart reviewed Discussed with RN We have her on full Covid protocol including remdesivir start IV mprhine Potassium still terrible low, give IV mag, repeat PO K+, discussed with RN, ICU replacement electrolytes ordered 80 PO this AM, will repeat PO K+ Vitals/I&O Vitals/I&O: Vital Signs Date Time Temp Pulse Resp B/P (MAP) Pulse Ox O2 Delivery O2 Flow Rate FiO2 06/13/21 15:30 98.7 74 24 105/72 (83) 97 Nasal Cannula 4.5 98.7 I & O 06/12/21 06/12/21 06/13/21 15:00 23:00 07:00 Intake Total 1180 ml Output Total 200 ml Balance 1180 ml -200 ml Physical Exam General: Alert, Oriented X3, Cooperative, mild distress Heart: Regular rate Abdomen: Normal bowel sounds, Soft, No tenderness, No hepatosplenomegaly, No masses Extremities: No clubbing, No cyanosis, No edema, Normal pulses, No tenderness/swelling Skin: No rashes, No breakdown, No significant lesion Labs Labs: Laboratory Tests Test 06/12/21 21:45 06/13/21 05:00 06/13/21 08:36 06/13/21 10:30 Glucose (Fingerstick) 236 mg/dL (70-99) 93 mg/dL (70-99) Sodium Level 141 mmol/L (136-145) Potassium Level 2.4 mmol/L (3.5-5.1) 2.7 mmol/L (3.5-5.1) Chloride Level 107 mmol/L (98-107) Carbon Dioxide Level 23 mmol/L (21-32) Anion Gap 11 (6-14) Blood Urea Nitrogen 10 mg/dL (7-20) Creatinine 0.5 mg/dL (0.6-1.0) Estimated GFR (Cockcroft-Gault) 135.3 Glucose Level 104 mg/dL (70-99) Calcium Level 7.6 mg/dL (8.5-10.1) Magnesium Level 2.1 mg/dL (1.8-2.4) Test 06/13/21 12:14 Glucose (Fingerstick) 243 mg/dL (70-99) Assessment and Plan Assessmemt and Plan Problems Medical Problems: (1) Atypical pneumonia Status: Acute (2) DKA (diabetic ketoacidosis) Status: Acute (3) Hypokalemia Status: Acute (4) Hyponatremia Status: Acute (5) Person under investigation for COVID-19 Status: Acute (6) Sepsis Status: Acute Comment Review of Relevant I have reviewed the following items leydi (where applicable) has been applied. Medications: Current Medications Medications (Trade) Dose Ordered Sig/Andres Route PRN Reason Start Time Stop Time Status Last Admin Dose Admin Aspirin (Aspirin Chewable) 81 mg [id number] PO 06/13/21 08:00 06/13/21 09:05 Potassium Chloride (Klor-Con) 40 meq 1X ONCE PO 06/13/21 06:30 06/13/21 06:31 DC 06/13/21 06:17 Potassium Chloride (Klor-Con) 40 meq 1X ONCE PO 06/13/21 08:30 06/13/21 08:31 DC 06/13/21 09:01 Potassium Chloride/Water 100 ml @ 50 mls/hr Q2H IV 06/13/21 12:30 06/13/21 16:29 DC 06/13/21 14:40 Potassium Chloride/Sodium Chloride 1,000 ml @ 75 mls/hr [id number] IV 06/13/21 12:30 06/13/21 12:38 Justifications for Admission Other Justification AURELIO ROSA MD Jun 13, 2021 17:21
[2021-06-13 19:00] VITALS: BP 122/85
[2021-06-13] MEDS: INSULIN GLARGINE SYRINGE. SQ SCH (20:29)
[2021-06-13 23:00] VITALS: BP 126/76
[2021-06-14] MEDS: POTASSIUM CL 40MEQ IN 0.9%NACL 1,000 ML IV SCH ×2 (01:48→17:44)
[2021-06-14 03:00] VITALS: BP 122/61
--- NOTE | 2021-06-14 05:59 | PDOC ---
PULMONARY PROGRESS NOTES DATE: 06/14/21 TIME: 05:58 Subjective on 02 4.5 lpm feels better has occ cough Vitals Vital Signs Date Time Temp Pulse Resp B/P (MAP) Pulse Ox O2 Delivery O2 Flow Rate FiO2 06/14/21 03:00 98.3 65 22 122/61 (81) 90 Nasal Cannula 4.5 98.3 Comments nc at rrr no accessory muscle use abd obese ROS: No Nausea, No Chest Pain, No Abdominal Pain, No Increase Cough General: Alert HEENT: Other (nc at ) Cardiovascular: S1, S2 Neuro Exam: Alert Extremities: No Edema Skin: No Rashes Labs Laboratory Tests Test 06/12/21 07:59 06/12/21 11:40 06/12/21 16:39 06/12/21 21:45 Glucose (Fingerstick) 96 mg/dL (70-99) 238 mg/dL (70-99) 293 mg/dL (70-99) 236 mg/dL (70-99) Test 06/13/21 05:00 06/13/21 08:36 06/13/21 10:30 06/13/21 12:14 Sodium Level 141 mmol/L (136-145) Potassium Level 2.4 mmol/L (3.5-5.1) 2.7 mmol/L (3.5-5.1) Chloride Level 107 mmol/L (98-107) Carbon Dioxide Level 23 mmol/L (21-32) Anion Gap 11 (6-14) Blood Urea Nitrogen 10 mg/dL (7-20) Creatinine 0.5 mg/dL (0.6-1.0) Estimated GFR (Cockcroft-Gault) 135.3 Glucose Level 104 mg/dL (70-99) Calcium Level 7.6 mg/dL (8.5-10.1) Magnesium Level 2.1 mg/dL (1.8-2.4) Glucose (Fingerstick) 93 mg/dL (70-99) 243 mg/dL (70-99) Test 06/13/21 20:21 06/13/21 23:15 Glucose (Fingerstick) 261 mg/dL (70-99) Potassium Level 3.8 mmol/L (3.5-5.1) Laboratory Tests Test 06/13/21 08:36 06/13/21 10:30 06/13/21 12:14 12/4/21 20:21 Glucose (Fingerstick) 93 mg/dL (70-99) 243 mg/dL (70-99) 261 mg/dL (70-99) Potassium Level 2.7 mmol/L (3.5-5.1) Test 06/13/21 23:15 Potassium Level 3.8 mmol/L (3.5-5.1) Impression . IMPRESSION: 1. Acute hypoxemic respiratory failure secondary to COVID-19 viral pneumonia. 2. Metabolic acidosis with an anion gap related to diabetic ketoacidosis. 3. Abnormal x-ray, compatible with viral pneumonia, possibly bacterial pneumonia. 4. Electrolyte abnormalities. 5. Sepsis. 6. COVID-19 viral pneumonia. 7. New onset diabetes Plan . Updated 06/14 titrate fio2 to keep sat 90% start IS to use multiple times an hour antibiotics Dexamethasone Remdesivir lovenox for dvt prophylaxis Blood sugar management per PCP discussed w rn Updated 06/11 titrate fio2 to keep sat 90% IV antibiotics Dexamethasone Remdesivir lovenox for dvt prophylaxis Blood sugar management per PCP discussed w rn Updated 06/12 Continue current support IV antibiotics Dexamethasone Remdesivir Blood sugar management per PCP Titrate FiO2 down updated 06/11 Continue current support IV antibiotics Dexamethasone Remdesivir Monitor labs Discussed with LAURY TYSON MD Jun 14, 2021 05:59
[2021-06-14 07:00] VITALS: BP 123/78
[2021-06-14] MEDS: INSULIN LISPRO 300 UNITS/3 ML VIAL. SQ SCH ×6 (08:00→17:45)
[2021-06-14] MEDS: DOXYCYCLINE HYCLATE 100 MG TABLET PO SCH ×2 (09:02→21:03)
[2021-06-14] MEDS: ZINC SULFATE 220 MG CAPSULE. PO SCH (09:02)
[2021-06-14] MEDS: ASPIRIN CHEWABLE 81 MG TABLET. PO SCH (09:02)
[2021-06-14] MEDS: LACTOBACILLUS RHAMNOSUS GG 1 CAPSULE. PO SCH ×2 (09:02→21:03)
[2021-06-14] MEDS: ASCORBIC ACID 1,000 MG TABLET PO SCH (09:03)
[2021-06-14] MEDS: FLUTICASONE 50MCG/NASAL SPRAY 16GM BOTTLE. NS SCH (09:03)
[2021-06-14] MEDS: DEXAMETHASONE SOD PHOS 4 MG/ML VIAL IVP SCH (09:03)
--- NOTE | 2021-06-14 10:54 | PDOC ---
[facility] [facility] PROGRESS NOTE Date of Service DOS: DATE: 06/14/21 TIME: 10:48 Chief Complaint Chief Complaint COVID 19 pneumoina sepsis and Pneumonia - with abnormal CXR, cough. Will cover with doxycycline. Given rocephin and azithromycin in ED DKA (diabetic ketoacidosis) - insulin GTT. DKA protocol q4hr BMP, phos, mag, monitor for gap, if gap closes, and she has appetite will initiate SC glargine insulin Hypokalemia - IV replacement Hyponatremia - likely pseudohyponatremia from hyperglycemia, will monitor Sepsis - due to above, will monitor fluids, given empiric IV antibiotics Headache - History of Present Illness History of Present Illness 06/14/2021 Patient seen and examined Patient awake, alert, in NAD 4.5L O2 per NC; 90% saturation Chart reviewed Discussed with RN 06/13 Patient evaluated and examined at bedside. Increase insulin today given her sugars. Continue COVID treatment weaning oxygen as tolerated. Plan of care discussed with bedside RN. 06/12/2021 Patient seen and examined Chart reviewed Discussed with RN We have her on full Covid protocol including remdesivir start IV mprhine Potassium still terrible low, give IV mag, repeat PO K+, discussed with RN, ICU replacement electrolytes ordered 80 PO this AM, will repeat PO K+ Vitals/I&O Vitals/I&O: Vital Signs Date Time Temp Pulse Resp B/P (MAP) Pulse Ox O2 Delivery O2 Flow Rate FiO2 06/14/21 07:00 98.2 67 22 123/78 (93) 90 Nasal Cannula 4.5 98.2 I & O 06/13/21 06/13/21 06/14/21 15:00 23:00 07:00 Intake Total 100 ml 830 ml 3027 ml Balance 100 ml 830 ml 3027 ml Physical Exam General: Alert, Oriented X3, Cooperative, mild distress Heart: Regular rate Abdomen: Normal bowel sounds, Soft, No tenderness, No hepatosplenomegaly, No masses Extremities: No clubbing, No cyanosis, No edema, Normal pulses, No tenderness/swelling Skin: No rashes, No breakdown, No significant lesion Labs Labs: Laboratory Tests Test 06/13/21 12:14 06/13/21 20:21 06/13/21 23:15 06/14/21 07:39 Glucose (Fingerstick) 243 mg/dL (70-99) 261 mg/dL (70-99) 123 mg/dL (70-99) Potassium Level 3.8 mmol/L (3.5-5.1) Assessment and Plan Assessmemt and Plan Problems Medical Problems: (1) Atypical pneumonia Status: Acute (2) DKA (diabetic ketoacidosis) Status: Acute (3) Hypokalemia Status: Acute (4) Hyponatremia Status: Acute (5) Person under investigation for COVID-19 Status: Acute (6) Sepsis Status: Acute Covid-19 respiratory failure Plan Continue Covid protocol Remdesivir IV antibiotics Beta agonist Oxygen Multiple vitamins and minerals Antitussives Aspirin Lovenox Home meds Trend labs Encourage p.o. intake Full code Appreciate subspecialist input Comment Review of Relevant I have reviewed the following items leydi (where applicable) has been applied. Medications: Current Medications Medications (Trade) Dose Ordered Sig/Andres Route PRN Reason Start Time Stop Time Status Last Admin Dose Admin Potassium Chloride/Water 100 ml @ 50 mls/hr Q2H IV 06/13/21 12:30 06/13/21 16:29 DC 06/13/21 14:40 Potassium Chloride/Sodium Chloride 1,000 ml @ 75 mls/hr [id number] IV 06/13/21 12:30 06/14/21 01:48 Insulin Glargine (Lantus Syringe) 45 unit QHS SQ 06/13/21 21:00 06/13/21 20:29 Insulin Human Lispro (HumaLOG) 15 units [id number] SQ 06/14/21 08:00 06/14/21 09:06 Justifications for Admission Other Justification VERITO CAPUTO III DO Jun 14, 2021 10:54
[2021-06-14 11:00] VITALS: BP 116/72
[2021-06-14] MEDS: cefTRIAXone IV Push 1 GM VIAL. IVP SCH (12:36)
[2021-06-14] MEDS: ENOXAPARIN 40 MG/0.4 ML SYRINGE. SQ SCH (12:36)
[2021-06-14 15:00] VITALS: BP 108/68
[2021-06-14 19:00] VITALS: BP 101/67
[2021-06-14] MEDS: INSULIN GLARGINE SYRINGE. SQ SCH (21:03)
[2021-06-14 23:00] VITALS: BP 103/65
[2021-06-15 03:00] VITALS: BP 137/75
[2021-06-15] MEDS: POTASSIUM CL 40MEQ IN 0.9%NACL 1,000 ML IV SCH (05:47)
[2021-06-15 07:00] VITALS: BP 129/66
[2021-06-15] MEDS: INSULIN LISPRO 300 UNITS/3 ML VIAL. SQ SCH ×6 (08:00→17:46)
[2021-06-15] MEDS: ZINC SULFATE 220 MG CAPSULE. PO SCH (09:23)
[2021-06-15] MEDS: DEXAMETHASONE SOD PHOS 4 MG/ML VIAL IVP SCH (09:23)
[2021-06-15] MEDS: FLUTICASONE 50MCG/NASAL SPRAY 16GM BOTTLE. NS SCH (09:23)
[2021-06-15] MEDS: ASPIRIN CHEWABLE 81 MG TABLET. PO SCH (09:24)
[2021-06-15] MEDS: DOXYCYCLINE HYCLATE 100 MG TABLET PO SCH ×2 (09:24→20:54)
[2021-06-15] MEDS: ASCORBIC ACID 1,000 MG TABLET PO SCH (09:24)
[2021-06-15] MEDS: LACTOBACILLUS RHAMNOSUS GG 1 CAPSULE. PO SCH ×2 (09:24→20:54)
--- NOTE | 2021-06-15 10:26 | PDOC ---
PULMONARY PROGRESS NOTES DATE: 06/15/21 TIME: 10:25 Subjective on 02 4.5 lpm feels better has occ cough Vitals Vital Signs Date Time Temp Pulse Resp B/P (MAP) Pulse Ox O2 Delivery O2 Flow Rate FiO2 06/15/21 07:00 97.8 53 20 129/66 (87) 93 Nasal Cannula 4.5 97.8 Comments Doing well. No shortness of breath. no accessory muscle use abd obese ROS: No Nausea, No Chest Pain, No Abdominal Pain, No Increase Cough General: Alert HEENT: Other (nc at ) Cardiovascular: S1, S2 Neuro Exam: Alert Extremities: No Edema Skin: No Rashes Labs Laboratory Tests Test 06/13/21 10:30 06/13/21 12:14 06/13/21 20:21 06/13/21 23:15 Potassium Level 2.7 mmol/L (3.5-5.1) 3.8 mmol/L (3.5-5.1) Glucose (Fingerstick) 243 mg/dL (70-99) 261 mg/dL (70-99) Test 06/14/21 07:39 06/14/21 10:56 06/14/21 17:35 06/14/21 19:37 Glucose (Fingerstick) 123 mg/dL (70-99) 240 mg/dL (70-99) 321 mg/dL (70-99) 343 mg/dL (70-99) Test 06/15/21 05:45 06/15/21 08:12 Potassium Level 4.4 mmol/L (3.5-5.1) Glucose (Fingerstick) 113 mg/dL (70-99) Laboratory Tests Test 06/14/21 10:56 06/14/21 17:35 06/14/21 19:37 06/15/21 05:45 Glucose (Fingerstick) 240 mg/dL (70-99) 321 mg/dL (70-99) 343 mg/dL (70-99) Potassium Level 4.4 mmol/L (3.5-5.1) Test 06/15/21 08:12 Glucose (Fingerstick) 113 mg/dL (70-99) Impression . IMPRESSION: 1. Acute hypoxemic respiratory failure secondary to COVID-19 viral pneumonia. 2. Metabolic acidosis with an anion gap related to diabetic ketoacidosis. 3. Abnormal x-ray, compatible with viral pneumonia, possibly bacterial pneumonia. 4. Electrolyte abnormalities. 5. Sepsis. 6. COVID-19 viral pneumonia. 7. New onset diabetes Plan . Updated 06/15 titrate fio2 to keep sat 90% Currently down to 4.5 L nasal cannula. IS to use multiple times an hour antibiotics Dexamethasone Remdesivir lovenox for dvt prophylaxis Blood sugar management per PCP discussed w rn Pulmonary status stable. We will see her as needed. Updated 06/14 titrate fio2 to keep sat 90% start IS to use multiple times an hour antibiotics Dexamethasone Remdesivir lovenox for dvt prophylaxis Blood sugar management per PCP discussed w rn Updated 06/11 titrate fio2 to keep sat 90% IV antibiotics Dexamethasone Remdesivir lovenox for dvt prophylaxis Blood sugar management per PCP discussed w rn Updated 06/12 Continue current support IV antibiotics Dexamethasone Remdesivir Blood sugar management per PCP Titrate FiO2 down updated 06/11 Continue current support IV antibiotics Dexamethasone Remdesivir Monitor labs Discussed with RN TRE MAURICE MD Jun 15, 2021 10:26
[2021-06-15 11:00] VITALS: BP 107/72
[2021-06-15] MEDS: cefTRIAXone IV Push 1 GM VIAL. IVP SCH (12:17)
[2021-06-15] MEDS: ENOXAPARIN 40 MG/0.4 ML SYRINGE. SQ SCH (12:18)
--- NOTE | 2021-06-15 12:41 | PDOC ---
[employer] [facility] PROGRESS NOTE Date of Service DOS: DATE: 06/15/21 TIME: 12:38 Chief Complaint Chief Complaint COVID 19 pneumoina sepsis and Pneumonia - with abnormal CXR, cough. Will cover with doxycycline. Given rocephin and azithromycin in ED DKA (diabetic ketoacidosis) - insulin GTT. DKA protocol q4hr BMP, phos, mag, monitor for gap, if gap closes, and she has appetite will initiate SC glargine insulin Hypokalemia - IV replacement Hyponatremia - likely pseudohyponatremia from hyperglycemia, will monitor Sepsis - due to above, will monitor fluids, given empiric IV antibiotics Headache - History of Present Illness History of Present Illness 06/15/2021 Patient seen and examined Patient is awake, alert, in NAD She has completed Remdesivir treatment 5L O2 per NC Chart reviewed Discussed with RN 06/14/2021 Patient seen and examined Patient awake, alert, in NAD 4.5L O2 per NC; 90% saturation Chart reviewed Discussed with RN 06/13 Patient evaluated and examined at bedside. Increase insulin today given her sugars. Continue COVID treatment weaning oxygen as tolerated. Plan of care discussed with bedside RN. 06/12/2021 Patient seen and examined Chart reviewed Discussed with RN We have her on full Covid protocol including remdesivir start IV mprhine Potassium still terrible low, give IV mag, repeat PO K+, discussed with RN, ICU replacement electrolytes ordered 80 PO this AM, will repeat PO K+ Vitals/I&O Vitals/I&O: Vital Signs Date Time Temp Pulse Resp B/P (MAP) Pulse Ox O2 Delivery O2 Flow Rate FiO2 06/15/21 11:00 97.7 53 20 107/72 (84) 89 Nasal Cannula 4.5 97.7 I & O 06/14/21 06/14/21 06/15/21 15:00 23:00 07:00 Intake Total 1000 ml 1500 ml Balance 1000 ml 1500 ml Physical Exam General: Alert, Oriented X3, Cooperative, mild distress Heart: Regular rate Abdomen: Normal bowel sounds, Soft, No tenderness, No hepatosplenomegaly, No masses Extremities: No clubbing, No cyanosis, No edema, Normal pulses, No tenderness/swelling Skin: No rashes, No breakdown, No significant lesion Labs Labs: Laboratory Tests Test 06/14/21 17:35 06/14/21 19:37 06/15/21 05:45 06/15/21 08:12 Glucose (Fingerstick) 321 mg/dL (70-99) 343 mg/dL (70-99) 113 mg/dL (70-99) Potassium Level 4.4 mmol/L (3.5-5.1) Test 06/15/21 11:33 Glucose (Fingerstick) 224 mg/dL (70-99) Assessment and Plan Assessmemt and Plan Problems Medical Problems: (1) Atypical pneumonia Status: Acute (2) DKA (diabetic ketoacidosis) Status: Acute (3) Hypokalemia Status: Acute (4) Hyponatremia Status: Acute (5) Person under investigation for COVID-19 Status: Acute (6) Sepsis Status: Acute Covid-19 respiratory failure Plan Continue Covid protocol Completed Remdesivir Continue IV antibiotics Beta agonist Trying to titrate down O2 Multiple vitamins and minerals Antitussives Aspirin Lovenox Home meds Trend labs Encourage p.o. intake Full code Appreciate subspecialist input Comment Review of Relevant I have reviewed the following items leydi (where applicable) has been applied. Justifications for Admission Other Justification VERTIO CAPUTO III DO Jun 15, 2021 12:41
--- NOTE | 2021-06-15 13:31 | PDOC ---
[facility] [facility] PROGRESS NOTE Date of Service DOS: DATE: 06/15/21 TIME: 13:31 Chief Complaint Chief Complaint COVID 19 pneumoina sepsis and Pneumonia - with abnormal CXR, cough. Will cover with doxycycline. Given rocephin and azithromycin in ED DKA (diabetic ketoacidosis) - insulin GTT. DKA protocol q4hr BMP, phos, mag, monitor for gap, if gap closes, and she has appetite will initiate SC glargine insulin Hypokalemia - IV replacement Hyponatremia - likely pseudohyponatremia from hyperglycemia, will monitor Sepsis - due to above, will monitor fluids, given empiric IV antibiotics Headache - History of Present Illness History of Present Illness 06/15/2021 Patient seen and examined Patient is awake, alert, in NAD She has completed Remdesivir treatment 5L O2 per NC Chart reviewed Discussed with RN 06/14/2021 Patient seen and examined Patient awake, alert, in NAD 4.5L O2 per NC; 90% saturation Chart reviewed Discussed with RN 06/13 Patient evaluated and examined at bedside. Increase insulin today given her sugars. Continue COVID treatment weaning oxygen as tolerated. Plan of care discussed with bedside RN. 06/12/2021 Patient seen and examined Chart reviewed Discussed with RN We have her on full Covid protocol including remdesivir start IV mprhine Potassium still terrible low, give IV mag, repeat PO K+, discussed with RN, ICU replacement electrolytes ordered 80 PO this AM, will repeat PO K+ Vitals/I&O Vitals/I&O: Vital Signs Date Time Temp Pulse Resp B/P (MAP) Pulse Ox O2 Delivery O2 Flow Rate FiO2 06/15/21 11:00 97.7 53 20 107/72 (84) 89 Nasal Cannula 4.5 97.7 I & O 06/14/21 06/14/21 06/15/21 15:00 23:00 07:00 Intake Total 1000 ml 1500 ml Balance 1000 ml 1500 ml Physical Exam General: Alert, Oriented X3, Cooperative, mild distress Heart: Regular rate Abdomen: Normal bowel sounds, Soft, No tenderness, No hepatosplenomegaly, No masses Extremities: No clubbing, No cyanosis, No edema, Normal pulses, No tenderness/swelling Skin: No rashes, No breakdown, No significant lesion Labs Labs: Laboratory Tests Test 06/14/21 17:35 06/14/21 19:37 06/15/21 05:45 06/15/21 08:12 Glucose (Fingerstick) 321 mg/dL (70-99) 343 mg/dL (70-99) 113 mg/dL (70-99) Potassium Level 4.4 mmol/L (3.5-5.1) Test 06/15/21 11:33 Glucose (Fingerstick) 224 mg/dL (70-99) Assessment and Plan Assessmemt and Plan Problems Medical Problems: (1) Atypical pneumonia Status: Acute (2) DKA (diabetic ketoacidosis) Status: Acute (3) Hypokalemia Status: Acute (4) Hyponatremia Status: Acute (5) Person under investigation for COVID-19 Status: Acute (6) Sepsis Status: Acut Discharge home with home health Comment Review of Relevant I have reviewed the following items leydi (where applicable) has been applied. Justifications for Admission Other Justification VERITO CAPUTO III DO Jun 15, 2021 13:31
--- NOTE | 2021-06-15 14:33 | NUR ---
SW following. Discussed with RN, pt from home with family, requiring 5L oxygen (does not use oxygen at home). COVID-19 positive. [employer] card provided for pt. 6 minute walk likely needed prior to discharge. SW will continue to follow.
[2021-06-15 15:00] VITALS: BP 99/66
[2021-06-15 19:00] VITALS: BP 95/65
[2021-06-15] MEDS: INSULIN GLARGINE SYRINGE. SQ SCH (20:55)
[2021-06-15 23:00] VITALS: BP 100/48
[2021-06-16 03:00] VITALS: BP 105/54
[2021-06-16 07:00] VITALS: BP 111/72
[2021-06-16] MEDS: INSULIN LISPRO 300 UNITS/3 ML VIAL. SQ SCH ×2 (08:00)
[2021-06-16] MEDS: FLUTICASONE 50MCG/NASAL SPRAY 16GM BOTTLE. NS SCH (09:01)
[2021-06-16] MEDS: LACTOBACILLUS RHAMNOSUS GG 1 CAPSULE. PO SCH (09:02)
[2021-06-16] MEDS: ZINC SULFATE 220 MG CAPSULE. PO SCH (09:02)
[2021-06-16] MEDS: ASPIRIN CHEWABLE 81 MG TABLET. PO SCH (09:02)
[2021-06-16] MEDS: DOXYCYCLINE HYCLATE 100 MG TABLET PO SCH (09:02)
[2021-06-16] MEDS: ENOXAPARIN 40 MG/0.4 ML SYRINGE. SQ SCH (09:02)
[2021-06-16] MEDS: ASCORBIC ACID 1,000 MG TABLET PO SCH (09:02)
[2021-06-16] MEDS: DEXAMETHASONE SOD PHOS 4 MG/ML VIAL IVP SCH (09:03)
--- NOTE | 2021-06-16 10:02 | PDOC ---
PULMONARY PROGRESS NOTES DATE: 06/16/21 TIME: 10:01 Subjective on 02 4.5 lpm feels better has occ cough Vitals Vital Signs Date Time Temp Pulse Resp B/P (MAP) Pulse Ox O2 Delivery O2 Flow Rate FiO2 06/16/21 07:00 98.2 93 22 111/72 (85) 89 Nasal Cannula 4.5 98.2 Comments Doing well. No shortness of breath. no accessory muscle use abd obese ROS: No Nausea, No Chest Pain, No Abdominal Pain, No Increase Cough General: Alert HEENT: Other (nc at ) Cardiovascular: S1, S2 Neuro Exam: Alert Extremities: No Edema Skin: No Rashes Labs Laboratory Tests Test 06/14/21 10:56 06/14/21 17:35 06/14/21 19:37 06/15/21 05:45 Glucose (Fingerstick) 240 mg/dL (70-99) 321 mg/dL (70-99) 343 mg/dL (70-99) Potassium Level 4.4 mmol/L (3.5-5.1) Test 06/15/21 08:12 06/15/21 11:33 06/15/21 16:51 06/15/21 20:05 Glucose (Fingerstick) 113 mg/dL (70-99) 224 mg/dL (70-99) 323 mg/dL (70-99) 319 mg/dL (70-99) Test 06/16/21 07:47 Glucose (Fingerstick) 113 mg/dL (70-99) Laboratory Tests Test 06/15/21 11:33 06/15/21 16:51 06/15/21 20:05 06/16/21 07:47 Glucose (Fingerstick) 224 mg/dL (70-99) 323 mg/dL (70-99) 319 mg/dL (70-99) 113 mg/dL (70-99) Impression . IMPRESSION: 1. Acute hypoxemic respiratory failure secondary to COVID-19 viral pneumonia. 2. Metabolic acidosis with an anion gap related to diabetic ketoacidosis. 3. Abnormal x-ray, compatible with viral pneumonia, possibly bacterial pneumonia. 4. Electrolyte abnormalities. 5. Sepsis. 6. COVID-19 viral pneumonia. 7. New onset diabetes Plan . Updated 06/16 titrate fio2 to keep sat 90% Currently down to 4.5 L nasal cannula. IS to use multiple times an hour antibiotics Dexamethasone Remdesivir lovenox for dvt prophylaxis Blood sugar management per PCP discussed w rn Pulmonary status stable. We will see her as needed. Updated 06/15 titrate fio2 to keep sat 90% Currently down to 4.5 L nasal cannula. IS to use multiple times an hour antibiotics Dexamethasone Remdesivir lovenox for dvt prophylaxis Blood sugar management per PCP discussed w rn Pulmonary status stable. We will see her as needed. Updated 06/14 titrate fio2 to keep sat 90% start IS to use multiple times an hour antibiotics Dexamethasone Remdesivir lovenox for dvt prophylaxis Blood sugar management per PCP discussed w rn Updated 06/11 titrate fio2 to keep sat 90% IV antibiotics Dexamethasone Remdesivir lovenox for dvt prophylaxis Blood sugar management per PCP discussed w rn Updated 06/12 Continue current support IV antibiotics Dexamethasone Remdesivir Blood sugar management per PCP Titrate FiO2 down updated 06/11 Continue current support IV antibiotics Dexamethasone Remdesivir Monitor labs Discussed with TRE PAL MD Jun 16, 2021 10:02
[2021-06-16 11:00] VITALS: BP 98/64
--- NOTE | 2021-06-16 11:42 | NUR ---
SW following. Discussed with RN, 6 minute walk pending for discharge. Awaiting result. ZO will continue to follow. Addendum: 06/16/21 at 1709 by RIKKI PATHAK Pt needing 2L oxygen with exertion, orders faxed to [facility]. Pt aware it will be $120 per month due to no insurance. Tank provided to pt from [employer]. RN notified.
[2021-06-16] MEDS ORDERED: INSU100V8 SQ (12:16)
[2021-06-16] MEDS ORDERED: INSU100V35 SQ (12:16)
--- NOTE | 2021-06-16 13:42 | PDOC ---
[employer] PROGRESS NOTE Date of Service DOS: DATE: 06/16/21 TIME: 13:41 Chief Complaint Chief Complaint COVID 19 pneumoina sepsis and Pneumonia - with abnormal CXR, cough. Will cover with doxycycline. Given rocephin and azithromycin in ED DKA (diabetic ketoacidosis) - insulin GTT. DKA protocol q4hr BMP, phos, mag, monitor for gap, if gap closes, and she has appetite will initiate SC glargine insulin Hypokalemia - IV replacement Hyponatremia - likely pseudohyponatremia from hyperglycemia, will monitor Sepsis - due to above, will monitor fluids, given empiric IV antibiotics Headache - History of Present Illness History of Present Illness 06/16/2020 Patient seen and examined She is at her baseline We will go ahead and discharge 06/15/2021 Patient seen and examined Patient is awake, alert, in NAD She has completed Remdesivir treatment 5L O2 per NC Chart reviewed Discussed with RN 06/14/2021 Patient seen and examined Patient awake, alert, in NAD 4.5L O2 per NC; 90% saturation Chart reviewed Discussed with RN 06/13 Patient evaluated and examined at bedside. Increase insulin today given her sugars. Continue COVID treatment weaning oxygen as tolerated. Plan of care discussed with bedside RN. 06/12/2021 Patient seen and examined Chart reviewed Discussed with RN We have her on full Covid protocol including remdesivir start IV mprhine Potassium still terrible low, give IV mag, repeat PO K+, discussed with RN, ICU replacement electrolytes ordered 80 PO this AM, will repeat PO K+ Vitals/I&O Vitals/I&O: Vital Signs Date Time Temp Pulse Resp B/P (MAP) Pulse Ox O2 Delivery O2 Flow Rate FiO2 06/16/21 11:00 97.6 66 20 98/64 (75) 91 Nasal Cannula 4.5 97.6 I & O 06/15/21 06/15/21 06/16/21 15:00 23:00 07:00 Intake Total 300 ml 360 ml Output Total 0 ml Balance 300 ml 360 ml Physical Exam General: Alert, Oriented X3, Cooperative, mild distress Heart: Regular rate Abdomen: Normal bowel sounds, Soft, No tenderness, No hepatosplenomegaly, No masses Extremities: No clubbing, No cyanosis, No edema, Normal pulses, No tenderness/swelling Skin: No rashes, No breakdown, No significant lesion Labs Labs: Laboratory Tests Test 06/15/21 16:51 06/15/21 20:05 06/16/21 07:47 Glucose (Fingerstick) 323 mg/dL (70-99) 319 mg/dL (70-99) 113 mg/dL (70-99) Assessment and Plan Assessmemt and Plan Problems Medical Problems: (1) Atypical pneumonia Status: Acute (2) DKA (diabetic ketoacidosis) Status: Acute (3) Hypokalemia Status: Acute (4) Hyponatremia Status: Acute (5) Person under investigation for COVID-19 Status: Acute (6) Sepsis Status: Acute COVID 19 pneumoina sepsis and Pneumonia - with abnormal CXR, cough. Will cover with doxycycline. Given rocephin and azithromycin in ED DKA (diabetic ketoacidosis) - insulin GTT. DKA protocol q4hr BMP, phos, mag, monitor for gap, if gap closes, and she has appetite will initiate SC glargine insulin Hypokalemia - IV replacement Hyponatremia - likely pseudohyponatremia from hyperglycemia, will monitor Sepsis - due to above, will monitor fluids, given empiric IV antibiotics Headache - Go ahead and discharge see Comment Review of Relevant I have reviewed the following items leydi (where applicable) has been applied. Justifications for Admission Other Justification VERITO CAPUTO III DO Jun 16, 2021 13:42
--- NOTE | 2021-06-16 14:32 | DS ---
DATE OF DISCHARGE: 06/16/2021 ADMITTING DIAGNOSIS: COVID-19 pneumonia. DISCHARGE DIAGNOSES: Resolving COVID-19 pneumonia, resolving sepsis, diabetic ketoacidosis, hypokalemia, hyponatremia, headaches. CONSULTS: Pulmonary Medicine. PROCEDURES: None. HOSPITAL COURSE: The patient is a pleasant, middle-aged female who presented with COVID-19 respiratory failure. She was admitted. We gave her remdesivir, Solu-Medrol, broad-spectrum antibiotics, doxycycline, vitamins and minerals and beta agonist and oxygen, cough syrup, aspirin, Lovenox. We consulted Pulmonary. Today, I saw and examined her. She is at her baseline. We plan to discharge. DISPOSITION: Home. ACTIVITY: As tolerated. DIET: Low sodium. DISCHARGE MEDICATIONS: Please see the MRAD. Medrol Dosepak, doxycycline 100 p.o. b.i.d., Lantus insulin 45 units at bedtime, NovoLog 15 units t.i.d. with meals. TOTAL TIME: [address]: Gene TID: [id number]
[2021-06-16 15:00] VITALS: BP 101/72
--- NOTE | 2021-06-16 16:23 | NUR ---
PATIENT DISCHARGED HOME WITH FAMILY. O2 TANK PROVIDED W/ INSTRUCTIONS TO CALL O2 COMPANY WHEN SHE GETS HOME. SCRIPTS CALLED INTO PHARMACY ON FILE, INCLUDING DIABETIC TESTING SUPPLIES. PATIENT AND NIECE INSTRUCTED ON THIS. GOOD RX CARD PROVIDED. IV REMOVED INTACT. PT STABLE UPON DC.
[2021-06-17] MEDS ORDERED: DEXAMETHASONE SOD PHOS 4 MG/ML VIAL IVP SCH (09:00)
== END 2021-06-16 16:00 | disposition home or self-care (01) | DRG 871 ==
LOC: ER 16:57 → ED HOLD 20:40 → 1 WEST ICU 06-09 00:28 → 5 SOUTH 06-11 16:24
PROVIDERS: ADMIT Internal Medicine; ATTEND Internal Medicine
PROC: XW033E5 Introduction of Remdesivir Anti-infective into Peripheral Vein, Percutaneous Approach, New Technology Group 5 (ICD-10-PCS; principal; 2021-06-09)
DX: A41.89 Other specified sepsis (principal); E11.10 Type 2 diabetes mellitus with ketoacidosis without coma; J12.82 Pneumonia due to coronavirus disease 2019; J96.01 Acute respiratory failure with hypoxia; U07.1 COVID-19; E87.1 Hypo-osmolality and hyponatremia; E87.6 Hypokalemia; Z83.3 Family history of diabetes mellitus
CPT/HCPCS: 36415; 36600; 71045; 80048; 80053; 81001; 82010; 82805; 82962; 83036; 83605; 83735; 83880; 84100; 84132; 84484; 85025; 87040; 87070; 87426; 87804; 87880; 93005; 94618; 96361; 96365; 96375; G0238; J0456; J0696; J1100; J1650; J1815; J1885; J2270; J2405; J3475; J3480; J3490; J7030; J7042; J7050; U0003; U0005; 99291-25; G0378